=== PATIENT | female | born 1950 | race Caucasian/White ===

== ENCOUNTER 2020-03-27 14:12 | Outpatient (REF) | payer MEDICARE, SELFPAY ==
--- NOTE | 2020-03-27 14:17 | MM_ITS ---
EXAMINATION: MM SCREENING DIGITAL MAMMOGRAPHY, BILATERAL CLINICAL INFORMATION: Screening. Asymptomatic. The lifetime risk of breast cancer based on the Tyrer-Cuzick Model is 6%. COMPARISON: Mammography: 11/14/2018, 11/10/2017, 11/08/2016, 10/06/2015 TECHNIQUE: Digital mammography is performed in craniocaudal and mediolateral oblique views along with computer-aided detection (CAD). FINDINGS: There are scattered areas of fibroglandular density (ACR BI-RADS breast composition Category b). There is again a circumscribed small stable nodule anterior left breast and small circumscribed nodule anterior right breast. There is a new circumscribed nodule right breast under 5 mm central 3:30 o'clock position mid depth, possibly a cyst. Patient will be recalled for additional imaging. The remainder of the breasts show no significant mass or architectural abnormality or abnormal calcifications. The axilla and skin contours are unremarkable. IMPRESSION: 1. Right: New small circumscribed nodule mid central 2:30 o'clock position, possibly a cyst. 2. Left: There are no significant changes from prior study. ASSESSMENT: BI-RADS 0: Incomplete - Need Additional Imaging Evaluation RECOMMENDATION: 1. Targeted ultrasound right breast. 2. Radiology department staff will contact the patient for additional imaging. This patient's information was entered into a reminder system with a target due date for their next mammogram.
== END 2020-03-27 14:13 | disposition home or self-care (01) ==
LOC: HO.MAMMO 14:12
PROVIDERS: Visit Provider Internal Medicine
DX: Z12.31 Encounter for screening mammogram for malignant neoplasm of breast (principal)
CPT/HCPCS: 77067

== ENCOUNTER 2020-04-02 12:02 | Outpatient (REF) | payer MEDICARE, SELFPAY ==
--- NOTE | 2020-04-02 | US_ITS ---
EXAMINATION: US DIAGNOSTIC ULTRASOUND BREAST, RIGHT CLINICAL INFORMATION: Recall from screening for new small circumscribed nodule mid central 12:30 o'clock right breast. COMPARISON: Mammography 03/27/2020, 11/14/2018. TECHNIQUE: Ultrasound right breast is targeted to the upper inner quadrant. Grayscale imaging and color Doppler are performed without and with harmonics. FINDINGS: There is a tiny circumscribed anechoic nodule just under 3 mm view from the 3:00 position 4 cm from nipple likely corresponding to finding on mammography. There is no increased or decreased through transmission of sound likely related to the small size. No associated color flow. There is no suspicious solid mass or architectural abnormality. Results are discussed with the patient at time of visit. Management plan is for follow-up right mammography in 6 months. Follow-up ultrasound may be considered if warranted. IMPRESSION: Probable small cyst just under 3 mm likely corresponding to finding on recent mammography. ASSESSMENT: BI-RADS 3: Probably Benign RECOMMENDATION: Diagnostic right mammography in 6 months. This patient's information was entered into a reminder system with a target due date for their next mammogram.
== END 2020-04-02 12:03 | disposition home or self-care (01) ==
LOC: HO.MAMMO 12:02
PROVIDERS: Visit Provider Internal Medicine
DX: N63.12 Unspecified lump in the right breast, upper inner quadrant (principal)
CPT/HCPCS: 76642

== ENCOUNTER 2020-05-07 06:13 | Outpatient (REF) | payer MEDICARE, SELFPAY | END 2020-05-07 06:14 | disposition home or self-care (01) | LOC: HO.LAB 06:13 | PROVIDERS: PCP Internal Medicine; Visit Provider Internal Medicine | DX: Z20.828 Contact with and (suspected) exposure to other viral communicable diseases (principal) | CPT/HCPCS: C9803; U0003 ==

== ENCOUNTER 2020-06-30 08:24 | Day surgery (SDC) | payer MEDICARE, SELFPAY ==
[2020-06-24 15:43] VITALS: BMI 25.4
--- NOTE | 2020-06-26 15:36 | HO.ANESPROP2 ---
Documented by User: Jojo Gunderson 06/26/20 15:37 HPI - Anesthesia Eval Consult details Narrative: 70yo F for Colonoscopy PMFSH Past Medical History Medical History Bilateral sciatica Elevated cholesterol Hx of heartburn Surgical History Surgical History History of bladder suspension procedure Hx of colonoscopy Hx of hysterectomy Social History Social History Alcohol intake: never Smoking Status: Former smoker Smoking Quit Date: 2013 Use of substances other than those prescribed or required for medical reasons: No Advance Directives: No Advance Directives Information Provided: No Advance Directives on File: No Meds Allergies Allergy/AdvReac Type Severity Reaction Status Date / Time codeine Allergy Severe Hives Verified 06/24/20 15:13 Penicillins Allergy Severe Anaphylaxis Verified 06/24/20 15:11 Home Medications Medication Instructions Recorded Confirmed Type biotin 1,000 mcg PO DAILY 06/24/20 06/24/20 History cholecalciferol (vitamin D3) 25 mcg PO DAILY 06/24/20 06/24/20 History [Vitamin D3] multivitamin 1 tab PO DAILY 06/24/20 06/24/20 History Exam Exam Date and Time: June 26, 2020 1536 Height,Weight and Vital Signs: Height 5 ft 1 in Weight 61.235 kg Assessment and Plan Assessment Anesthesia Assessment: Chart Reviewed Documented by User: Caterina Tejada 06/30/20 09:55 PMFSH Past Medical History Medical History Bilateral sciatica Elevated cholesterol Hx of heartburn Surgical History Surgical History History of bladder suspension procedure Hx of colonoscopy Hx of hysterectomy Social History Social History Alcohol intake: never Smoking Status: Former smoker Smoking Quit Date: 2013 Use of substances other than those prescribed or required for medical reasons: No Advance Directives: No Advance Directives Information Provided: No Advance Directives on File: No Meds Allergies Allergy/AdvReac Type Severity Reaction Status Date / Time codeine Allergy Severe Hives Verified 06/24/20 15:13 Penicillins Allergy Severe Anaphylaxis Verified 06/24/20 15:11 Home Medications Medication Instructions Recorded Confirmed Type biotin 1,000 mcg PO DAILY 06/24/20 06/24/20 History cholecalciferol (vitamin D3) 25 mcg PO DAILY 06/24/20 06/24/20 History [Vitamin D3] multivitamin 1 tab PO DAILY 06/24/20 06/24/20 History Exam Airway Mallampati Class: II (4 caps top) TM Dist: >3cm Neck ROM: Full Heart: RrR Lungs: CTA BL Assessment and Plan Assessment Anesthesia Assessment: Anesthesia Plan Discussed and Chart Reviewed Final Anesthetic Review NPO: Yes ASA Class: II Final Preanesthetic Review: Meds/Allgs Chart Reviewed and Consent Obtained/Reviewed Patient Risk: Intermediate Procedure Risk: Intermediate Anesthetic Plan Anesthetic Plan: MAC: Disposition: Standard PACU
[2020-06-30 09:19] VITALS: BP 142/92; PULSE 86; RESP 18; TEMP 36.9; O2SAT 97; BMI 25.2
[2020-06-30] MEDS: Lactated Ringers 1,000 ML 100 ML IVCONT (09:24)
[2020-06-30 10:56] VITALS: BP 129/82; PULSE 69; RESP 16; TEMP 36.2; O2SAT 97
--- NOTE | 2020-06-30 11:00 | PM.OP ---
Brief Operative Note Date of Service: 06/30/20 Pre-op diagnosis: Screening Post-op diagnosis: other (Diverticulosis, [place] hemorrhoids) Procedure: Colonoscopy to the cecum Surgeon: Ole Peres Anesthesia: MAC Estimated blood loss (mL): 0 Pathology: none sent Condition: stable Disposition: PACU
[2020-06-30 11:11] VITALS: BP 138/81; PULSE 71; RESP 18; TEMP 36.2; O2SAT 96
--- NOTE | 2020-06-30 11:30 | OP_ITS ---
SURGEON: Ole Peres MD INDICATIONS: The patient presents for followup of personal history of tubular adenoma of the colon and colorectal cancer screening. Full consent has been obtained from her for this, including risks of bleeding and perforation. PREOPERATIVE DIAGNOSIS: POSTOPERATIVE DIAGNOSIS: PROCEDURE PERFORMED: Colonoscopy to the cecum. ESTIMATED BLOOD LOSS: COMPLICATIONS: ANESTHESIA: Monitored anesthesia care. ASSISTANTS: SPECIMENS: PREOPERATIVE DIAGNOSES: Colorectal cancer screening and personal history of tubular adenoma of the colon. POSTOPERATIVE DIAGNOSES: Colorectal cancer screening and personal history of tubular adenoma of the colon, diverticulosis, and internal hemorrhoids. DESCRIPTION OF PROCEDURE: The patient was placed in the left lateral decubitus position. The digital rectal exam revealed no abnormalities. The Olympus video pediatric colonoscope was entered into the rectum and advanced to the cecum with the assistance of abdominal wall pressure. Once in the cecum, I did identify normal-appearing cecal pouch with appendiceal orifice and a normal-appearing ileocecal valve. There was transillumination of light deep in the right lower quadrant. The entire cecum was well visualized and appeared normal. The scope was slowly withdrawn assessing all mucosal surfaces carefully. Preparation was excellent. I did not visualize any sign of polyps, colitis, nor angiodysplasia. There was a moderate amount of sigmoid diverticulosis. In the rectum, scope was retroflexed visualizing internal hemorrhoids, but no other pathology. The rectal mucosa appeared normal. The scope was straightened and withdrawn from the patient. She tolerated the procedure well and was returned to recovery area in stable condition. IMPRESSION: 1. Diverticulosis. 2. Internal hemorrhoids. PLAN: Given her previous history, I would recommend a followup colonoscopy in 5 years for further screening. She will otherwise see me on a p.r.n. basis. MD KIRSTEN Lynn/JAIME / [phone]
--- NOTE | 2020-06-30 11:47 | HO.POSTANES ---
Post Anesthesia Evaluation Post Anesthesia Evaluation Vital Signs: Vital Signs Temp Pulse Resp BP Pulse Ox 06/30/20 11:11 97.1 F 71 18 138/81 96 06/30/20 10:56 97.1 F 69 16 129/82 97 06/30/20 09:19 98.5 F 86 18 142/92 H 97 Anesthesia: Monitored Mental Status: Awake Pain Control: Satisfactory Nausea/Vomiting: None Hydration: Adequate Anesthesia-Related Issues: No Anes. Related Issues
== END 2020-06-30 11:56 | disposition home or self-care (01) ==
PROVIDERS: PCP Internal Medicine; Visit Provider Internal Medicine
PROC: 0DJD8ZZ Inspection of Lower Intestinal Tract, Via Natural or Artificial Opening Endoscopic (ICD-10-PCS; CPT 45378; principal; 2020-06-30 09:40)
DX: Z12.11 Encounter for screening for malignant neoplasm of colon (principal); K57.30 Diverticulosis of large intestine without perforation or abscess without bleeding; K64.8 Other hemorrhoids; E78.00 Pure hypercholesterolemia, unspecified; Z79.899 Other long term (current) drug therapy; Z87.891 Personal history of nicotine dependence; Z88.0 Allergy status to penicillin; Z88.8 Allergy status to other drugs, medicaments and biological substances
CPT/HCPCS: G0105

== ENCOUNTER 2020-08-14 06:02 | Outpatient (REF) | payer MEDICARE, SELFPAY ==
[2020-08-14 11:12] LABS: MANUAL DIFF FLAG NO
[2020-08-14 11:25] LABS: Basophils Percent Auto 0.4 % (0-2); Eosinophils Absolute Auto 0.2 X10*3/uL (0.0-0.4); Eosinophils Percent Auto 2.5 % (0-4); Hematocrit 38.9 % (37-47); Hemoglobin 12.8 g/dl (12.0-16.0); Imm Gran Abs Auto 0.02 X10*3/uL (0.00-0.03); Imm Gran Pct Auto 0.2 % (0.0-0.4); Lymphocytes Absolute Auto 3.9 X10*3/uL (1.2-4.9); Lymphocytes Percent Auto 47.9 % (20-40); Mean Corpuscular HGB Conc 32.9 g/dl (31.0-35.0); Mean Corpuscular Hemoglobin 30.7 pg (27.0-33.0); Mean Corpuscular Volume 93.3 fL (80-98); Mean Platelet Volume 10.8 fL (9.4-12.3); Monocytes Absolute Auto 0.5 X10*3/uL (0.1-1.2); Monocytes Percent Auto 5.5 % (2-11); Neutrophils Absolute Auto 3.5 X10*3/uL (2.0-8.3); Neutrophils Percent Auto 43.5 % (45-73); Platelet Count 276 X10*3/uL (160-400); Red Blood Count 4.17 X10*6/uL (4.20-5.50); Red Cell Distribution Width 12.6 % (11.0-16.0); White Blood Count 8.1 X10*3/uL (4.8-10.8)
[2020-08-14 12:01] LABS: Anion Gap 13 (12-20); Blood Urea Nitrogen 15 mg/dL (9-16); Calcium 9.1 mg/dL (8.4-10.2); Carbon Dioxide 30 mmol/L (22-29); Chloride 104 mmol/L (96-108); Cholesterol 226 mg/dL; Estimated Glomerular Filt Rate > 60; Glucose Fasting 116 mg/dL (60-99); HDL Cholesterol 49 mg/dL; LDL Cholesterol Calculated 132 mg/dl; Potassium 4.2 mmol/L (3.3-5.1); Sodium 143 mmol/L (135-145); Triglycerides 229 mg/dL
[2020-08-14 12:04] LABS: Vitamin D 25-OH Total 41.4 ng/mL (>30)
== END 2020-08-14 06:03 | disposition home or self-care (01) ==
LOC: HO.HMGCLDS 06:02
PROVIDERS: PCP Internal Medicine; Visit Provider Internal Medicine
DX: D72.829 Elevated white blood cell count, unspecified (principal); E78.1 Pure hyperglyceridemia; M85.89 Other specified disorders of bone density and structure, multiple sites; R73.01 Impaired fasting glucose; Z78.0 Asymptomatic menopausal state; I10 Essential (primary) hypertension
CPT/HCPCS: 36415; 80048; 80061; 82306; 85025

== ENCOUNTER 2020-09-01 08:39 | Outpatient (REF) | payer MEDICARE, SELFPAY ==
--- NOTE | ~2020-09-01 | MM_ITS ---
EXAMINATION: MM DIAGNOSTIC DIGITAL BREAST TOMOSYNTHESIS, RIGHT CLINICAL INFORMATION: Short interval six-month follow-up probable benign circumscribed nodule central right breast. The lifetime risk of breast cancer based on the Tyrer-Cuzick Model is 6%. COMPARISON: Mammography: 03/27/2020, 11/14/2018, 11/10/2017; targeted right breast ultrasound 04/02/2020 TECHNIQUE: Digital breast tomosynthesis is performed in both the craniocaudal and mediolateral oblique views along with computer-aided detection (CAD). Synthesized 2D images are generated from the tomosynthesis. FINDINGS: There are scattered areas of fibroglandular density (ACR BI-RADS breast composition Category b). The small circumscribed nodule central right breast is without significant change. It will be reassessed again at time of annual bilateral mammography, due in 6 months. Remainder of the right breast is unremarkable. No abnormal calcifications. The skin contours are smooth. Results are provided to the patient at time of visit by the technologist. MM/MM tomosynthesis diagnostic RT IMPRESSION: Small circumscribed nodule central right breast under 5 mm without significant change. ASSESSMENT: BI-RADS 3: Probably Benign RECOMMENDATION: Diagnostic mammography at time of annual bilateral exam, due in 6 months. This patient's information was entered into a reminder system with a target due date for their next mammogram.
== END 2020-09-01 08:40 | disposition home or self-care (01) ==
LOC: HO.MAMMO 08:39
PROVIDERS: Visit Provider Internal Medicine
DX: R92.2 Inconclusive mammogram (principal)
CPT/HCPCS: 77061; 77065

== ENCOUNTER 2021-03-11 14:43 | Outpatient (REF) | payer MEDICARE, SELFPAY ==
--- NOTE | ~2021-03-11 | MM_ITS ---
EXAMINATION: MM DIAGNOSTIC DIGITAL BREAST TOMOSYNTHESIS, BILATERAL CLINICAL INFORMATION: Six-month follow-up right breast nodule. COMPARISON: Mammography: Mammography of 09/01/2020 and studies dating back to 04/17/2010. Ultrasound studies of 04/02/2020 and 10/14/2015. TECHNIQUE: Digital breast tomosynthesis is performed in both the craniocaudal and mediolateral oblique views along with computer-aided detection (CAD). Synthesized 2D images are generated from the tomosynthesis. FINDINGS: There are scattered areas of fibroglandular density (ACR BI-RADS breast composition Category b). There is stable parenchymal pattern bilaterally with a few well-circumscribed densities likely representing cysts with stability of the 3 mm density about the central superior medial right breast. The left retroareolar density is stable compared to recent studies and smaller than on older studies including 04/17/2010 and 03/20/2009. No new abnormal dominant mass or suspicious grouping of microcalcification is identified. Results are discussed with the patient at time of visit. MM/MM tomosynthesis diagnostic BI IMPRESSION: There are no significant changes from prior study. ASSESSMENT: BI-RADS 3: Probably Benign. RECOMMENDATION: Diagnostic mammography at time of next annual exam, due in 12 months. This patient's information was entered into a reminder system with a target due date for their next mammogram.
== END 2021-03-11 14:44 | disposition home or self-care (01) ==
LOC: HO.MAMMO 14:43
PROVIDERS: PCP Internal Medicine; Visit Provider Internal Medicine
DX: N63.15 Unspecified lump in the right breast, overlapping quadrants (principal)
CPT/HCPCS: 77062; 77066

== ENCOUNTER 2021-03-26 13:22 | Outpatient (REF) | payer MEDICARE, SELFPAY ==
--- NOTE | ~2021-03-26 | MM_ITS ---
EXAMINATION: BONE DENSITOMETRY CLINICAL INDICATION: Other specified disorders of bone density and structure. COMPARISON: Previous BD dated 11/10/2017 and baseline BD dated 03/20/2009, left hip; 06/26/2004, spine. TECHNIQUE: Using a [employer] DXA System (software version: 13.1) manufactured by [employer], dual-energy x-ray absorptiometry was performed of the lumbar spine and left hip. The images are of good technical quality. Summary results are attached. FINDINGS: AP SPINE L1-L4: Current: BMD 1.060 g/cm2, Z-score 0.7, T-score -1.0, normal, 2.0% decrease from previous, 3.4% decrease from baseline (<5% change is not significant). Prior: BMD 1.082 g/cm2. Baseline: BMD 1.097 g/cm2. LEFT FEMUR, NECK: Current: BMD 0.833 g/cm2, Z-score 0.2, T-score -1.5, osteopenia. Prior: BMD 0.793 g/cm2. Baseline: BMD 0.847 g/cm2. LEFT FEMUR, TOTAL: Current: BMD 0.895 g/cm2, Z-score 0.6, T-score -0.9, normal, 10.1% increase from previous, 3.7% decrease from baseline (<5% change is not significant). Prior: BMD 0.813 g/cm2. Baseline: BMD 0.929 g/cm2. IDENTIFIED RISK FACTORS: Early menopause, secondary osteoporosis, hysterectomy. HISTORY OF FRACTURE: None listed. MEDICATIONS: Calcium supplements or multivitamin, vitamin D. MM/XR DEXA axial skeleton IMPRESSION: 1. DIAGNOSIS: Osteopenia based on the lowest T-score value of -1.5 in the femoral neck applying World Health Organization criteria. 2. 10-YEAR FRACTURE RISK PREDICTION, FRAX: Major osteoporotic fracture (clinical spine, forearm, hip or shoulder) 9.9%. Hip fracture 1.4%. 3. Treatment Recommendations: NOF guidelines recommend consideration for treatment in postmenopausal women and men age 50 and older presenting with the following: -A hip or vertebral (clinical or morphometric) fracture. -T-score less than or equal to -2.5 at the femoral neck or spine after appropriate evaluation to exclude secondary causes. -Low bone mass at the hip or spine and a 10-year fracture probability by FRAX of greater than or equal to 3% for hip fracture or greater than or equal to 20% for major osteoporotic fracture based on the [place] adapted WHO algorithm. 4. Other Recommendations: All treatment decisions require clinical judgment and consideration of individual patient factors, including patient preferences, comorbidities, previous drug use, risk factors not captured in the FRAX model (e.g. frailty, falls, vitamin D deficiency, increased bone turnover, interval significant decline in bone density) and possible under or overestimation of fracture risk by FRAX. Additional medical evaluation for secondary cause of low bone mineral density may be appropriate. FUTURE SCAN RECOMMENDATION: People with diagnosed cases of osteoporosis or at high risk for fracture should have regular bone mineral density tests. For patients eligible for Medicare, routine testing is allowed once every 2 years. The testing frequency can be increased to one year for patients who have rapidly progressing disease, those who are receiving or discontinuing medical therapy to restore bone mass, or have additional risk factors.
== END 2021-03-26 13:23 | disposition home or self-care (01) ==
LOC: HO.MAMMO 13:22
PROVIDERS: Visit Provider Internal Medicine
DX: Z13.820 Encounter for screening for osteoporosis (principal); M85.89 Other specified disorders of bone density and structure, multiple sites; Z78.0 Asymptomatic menopausal state; Z79.899 Other long term (current) drug therapy; Z98.890 Other specified postprocedural states
CPT/HCPCS: 77080

== ENCOUNTER 2021-08-19 06:06 | Outpatient (REF) | payer MEDICARE, SELFPAY ==
[2021-08-19 11:30] LABS: Alanine Aminotransferase 26 U/L (0-31); Anion Gap 9 (12-20); Aspartate Amino Transferase 23 U/L (5-31); Blood Urea Nitrogen 17 mg/dL (9-16); Calcium 9.1 mg/dL (8.4-10.2); Carbon Dioxide 30 mmol/L (22-29); Chloride 106 mmol/L (96-108); Cholesterol 210 mg/dL; Estimated Glomerular Filt Rate > 60; Glucose Fasting 120 mg/dL (60-99); HDL Cholesterol 41 mg/dL; LDL Cholesterol Calculated 125 mg/dl; Potassium 4.1 mmol/L (3.3-5.1); Sodium 141 mmol/L (135-145); Triglycerides 220 mg/dL
[2021-08-19 11:52] LABS: Vitamin D 25-OH Total 51.1 ng/mL (>30)
== END 2021-08-19 06:07 | disposition home or self-care (01) ==
LOC: HO.HMGCLDS 06:06
PROVIDERS: Visit Provider Internal Medicine
DX: E78.2 Mixed hyperlipidemia (principal); M85.89 Other specified disorders of bone density and structure, multiple sites; E78.1 Pure hyperglyceridemia; I10 Essential (primary) hypertension; R73.01 Impaired fasting glucose; Z78.0 Asymptomatic menopausal state
CPT/HCPCS: 36415; 80048; 80061; 82306; 84450; 84460

== ENCOUNTER 2022-02-23 16:24 | Outpatient (REF) | payer OTHER, SELFPAY ==
[2022-02-23 16:28] LABS: Urine Cytology See Pathology rpt
[2022-02-23 16:35] LABS: Appearance Urine Clear; Color Urine Yellow; Glucose Urine UA Negative (Negative); Leukocyte Esterase Urine Large (3+) (Negative); Nitrite Urine Negative (Negative); Urine Blood Large (3+) (Negative); Urine Ketones Negative (Negative); Urine Protein Trace mg/dL (Neg-Trace)
[2022-02-23 16:49] LABS: Bacteria Urine None Seen (None Seen); Hyaline Casts Urine 0-2 /LPF (0-2); Squamous Epithelial Cell Urine 0-2 /HPF (0-2); UACC Culture Trigger YES; WBC Urine >50 /HPF (0-5)
== END 2022-02-23 16:25 | disposition home or self-care (01) ==
LOC: HO.LNP 16:24
PROVIDERS: Visit Provider Internal Medicine
DX: R31.9 Hematuria, unspecified (principal); R10.9 Unspecified abdominal pain; Z87.442 Personal history of urinary calculi
CPT/HCPCS: 81001; 87086; 88112

== ENCOUNTER 2022-02-25 06:06 | Outpatient (REF) | payer OTHER, SELFPAY ==
[2022-02-25 11:24] LABS: MANUAL DIFF FLAG NO
[2022-02-25 11:33] LABS: Basophils Percent Auto 0.5 % (0-2); Eosinophils Absolute Auto 0.2 X10*3/uL (0.0-0.4); Hematocrit 40.2 % (37.0-47.0); Hemoglobin 12.9 g/dl (12.0-16.0); Imm Gran Abs Auto 0.02 X10*3/uL (0.00-0.03); Imm Gran Pct Auto 0.3 % (0.0-0.4); Lymphocytes Absolute Auto 3.2 X10*3/uL (1.2-4.9); Lymphocytes Percent Auto 41.4 % (20-40); Mean Corpuscular HGB Conc 32.1 g/dl (31.0-35.0); Mean Corpuscular Hemoglobin 29.9 pg (27.0-33.0); Mean Corpuscular Volume 93.3 fL (80.0-98.0); Mean Platelet Volume 10.5 fL (9.4-12.3); Monocytes Absolute Auto 0.4 X10*3/uL (0.1-1.2); Monocytes Percent Auto 5.2 % (2-11); Neutrophils Absolute Auto 3.9 x10*3/uL (2.0-8.3); Neutrophils Percent Auto 50.6 % (45-73); Platelet Count 259 X10*3/uL (160-400); Red Blood Count 4.31 X10*6/uL (4.20-5.50); Red Cell Distribution Width 12.1 % (11.0-16.0); White Blood Count 7.7 X10*3/uL (4.8-10.8)
[2022-02-25 12:20] LABS: Estimated Average Glucose 128 mg/dL; Hemoglobin A1c % 6.1 %
[2022-02-25 12:28] LABS: Alanine Aminotransferase 20 U/L (0-31); Aspartate Amino Transferase 21 U/L (5-31); Cholesterol 207 mg/dL; Glucose Fasting 125 mg/dL (60-99); HDL Cholesterol 39 mg/dL; LDL Cholesterol Calculated 94 mg/dl; Triglycerides 370 mg/dL
[2022-02-25 12:52] LABS: Vitamin D 25-OH Total 46.4 ng/mL (>30)
== END 2022-02-25 06:07 | disposition home or self-care (01) ==
LOC: HO.HMGCLDS 06:06
PROVIDERS: PCP Internal Medicine; Visit Provider Internal Medicine
DX: R73.01 Impaired fasting glucose (principal); E78.2 Mixed hyperlipidemia; M85.89 Other specified disorders of bone density and structure, multiple sites; Z78.0 Asymptomatic menopausal state
CPT/HCPCS: 36415; 80061; 82306; 82947; 83036; 84450; 84460; 85025

== ENCOUNTER 2022-02-26 06:35 | Outpatient (REF) | payer OTHER, SELFPAY ==
[2022-02-26 11:56] LABS: Appearance Urine Clear; Color Urine Yellow; Glucose Urine UA Negative (Negative); Leukocyte Esterase Urine Moderate (2+) (Negative); Nitrite Urine Negative (Negative); PH 5.5 (5.0-9.0); Urine Blood Trace (Negative); Urine Ketones Negative (Negative); Urine Protein Trace mg/dL (Neg-Trace)
[2022-02-26 11:59] LABS: Bacteria Urine 3+ (None Seen); Hyaline Casts Urine 0-2 /LPF (0-2); WBC Urine 21-50 /HPF (0-5)
[2022-02-26 12:05] LABS: UACC Culture Trigger YES
== END 2022-02-26 06:36 | disposition home or self-care (01) ==
LOC: HO.HMGCLDS 06:35
PROVIDERS: PCP Internal Medicine; Visit Provider Internal Medicine
DX: Z13.89 Encounter for screening for other disorder (principal)
CPT/HCPCS: 81001; 87086; 87088; 87186

== ENCOUNTER 2022-02-27 11:20 | Outpatient (REF) | payer OTHER, SELFPAY ==
[2022-02-27 13:28] LABS: Urine Cytology See Pathology rpt
== END 2022-02-27 11:21 | disposition home or self-care (01) ==
LOC: HO.HMGCLNP 11:20
PROVIDERS: PCP Internal Medicine; Visit Provider Internal Medicine
DX: R31.9 Hematuria, unspecified (principal)
CPT/HCPCS: 88112

== ENCOUNTER 2022-03-16 07:18 | Outpatient (REF) | payer OTHER, SELFPAY ==
[2022-03-16 12:38] LABS: Appearance Urine Clear; Color Urine Yellow; Glucose Urine UA Negative (Negative); Leukocyte Esterase Urine Negative (Negative); Nitrite Urine Negative (Negative); PH 5.5 (5.0-9.0); Specific Gravity - Urine 1.025 (1.005-1.025); Urine Blood Negative (Negative); Urine Ketones Negative (Negative); Urine Protein Negative (Neg-Trace)
== END 2022-03-16 07:19 | disposition home or self-care (01) ==
LOC: HO.HMGCLDS 07:18
PROVIDERS: PCP Internal Medicine; Visit Provider Internal Medicine
DX: N39.0 Urinary tract infection, site not specified (principal)
CPT/HCPCS: 81003

== ENCOUNTER 2022-03-30 15:05 | Outpatient (REF) | payer OTHER, SELFPAY ==
--- NOTE | ~2022-03-30 | MM_ITS ---
EXAMINATION: MM DIAGNOSTIC DIGITAL BREAST TOMOSYNTHESIS, BILATERAL CLINICAL INFORMATION: Due for yearly. Follow-up probable benign small circumscribed nodule central inner right breast. Family history breast cancer, sister. TC score 4%. COMPARISON: Mammography: 03/11/2021, 09/01/2020, 03/27/2020 (BI-RADS 0). Diagnostic right breast ultrasound 04/02/2020. TECHNIQUE: Digital breast tomosynthesis is performed in both the craniocaudal and mediolateral oblique views along with computer-aided detection (CAD). Synthesized 2D images are generated from the tomosynthesis. FINDINGS: There are scattered areas of fibroglandular density (ACR BI-RADS breast composition Category b). Parenchymal pattern is similar to prior studies and there is no interval mass or architectural abnormality or abnormal calcifications. There is a chronic smooth nodule just under 5 mm anterior left breast. The smaller nodule for follow-up central inner right breast is no longer clearly demonstrated consistent with resolving cyst. The axilla and skin contours are unremarkable. Results are provided to the patient at time of visit by the technologist. MM/MM tomosynthesis diagnostic BI IMPRESSION: -No mammographic evidence of malignancy. -Small circumscribed nodule for follow-up central inner right breast is no longer clearly demonstrated suggesting resolving cyst. ASSESSMENT: BI-RADS 2: Benign RECOMMENDATION: Routine annual mammography screening. This patient's information was entered into a reminder system with a target due date for their next mammogram.
== END 2022-03-30 15:06 | disposition home or self-care (01) ==
LOC: HO.MAMMO 15:05
PROVIDERS: Visit Provider Internal Medicine
DX: N63.15 Unspecified lump in the right breast, overlapping quadrants (principal)
CPT/HCPCS: 77062; 77066

== ENCOUNTER 2022-04-08 13:39 | Outpatient (REF) | payer OTHER, SELFPAY ==
--- NOTE | ~2022-04-08 | US_ITS ---
EXAMINATION: US RETROPERITONEAL LIMITED (RENAL ONLY) CLINICAL INFORMATION: Hematuria, unspecified. COMPARISON: None TECHNIQUE: Real-time imaging of the kidneys. FINDINGS: RIGHT KIDNEY: 9.70 x 4.05 x 5.21 cm (SAG x AP x TRV). The kidney is normal in size, contour, and echogenicity. Renal cortical thickness is normal. Multiple echogenic but nonshadowing foci are seen in the right kidney which could reflect vascular calcifications or nonshadowing calculi. No focal parenchymal lesions. No hydronephrosis. LEFT KIDNEY: 10.4 x 4.46 x 4.69 cm (SAG x AP x TRV). The kidney is normal in size, contour, and echogenicity. Renal cortical thickness is normal. No renal calculi or hydronephrosis. 9 mm left upper pole simple cyst. US/US renal BI IMPRESSION: Multiple small (2 to 3 mm) nonspecific echogenic foci are seen in the right kidney, without shadowing. These could represent vascular calcifications or nonshadowing calculi.
== END 2022-04-08 13:40 | disposition home or self-care (01) ==
LOC: HO.HMGCX 13:39
PROVIDERS: PCP Internal Medicine; Visit Provider Internal Medicine
DX: R31.9 Hematuria, unspecified (principal); Z87.442 Personal history of urinary calculi
CPT/HCPCS: 76775

== ENCOUNTER 2022-08-03 13:37 | Outpatient (REF) | payer OTHER, SELFPAY ==
[2022-08-03 16:14] LABS: Urine Cytology See Pathology rpt
== END 2022-08-03 13:38 | disposition home or self-care (01) ==
LOC: HO.LAB 13:37
PROVIDERS: PCP Internal Medicine; Visit Provider Nurse Practitioner Family
DX: R31.9 Hematuria, unspecified (principal)
CPT/HCPCS: 88112; 99202

== ENCOUNTER 2022-08-10 09:24 | Outpatient (REF) | payer OTHER, SELFPAY ==
[2022-08-10 11:48] LABS: Blood Urea Nitrogen 12 mg/dL (9-16); Estimated Glomerular Filt Rate > 60
== END 2022-08-10 09:25 | disposition home or self-care (01) ==
LOC: HO.HMGCLDS 09:24
PROVIDERS: PCP Internal Medicine; Visit Provider Nurse Practitioner Family
DX: R31.9 Hematuria, unspecified (principal)
CPT/HCPCS: 36415; 82565; 84520

== ENCOUNTER 2022-08-30 08:01 | Outpatient (REF) | payer OTHER, SELFPAY ==
--- NOTE | ~2022-08-30 | CT_ITS ---
EXAMINATION: CT ABDOMEN AND PELVIS WITHOUT AND WITH CONTRAST CLINICAL INFORMATION: Gross hematuria. COMPARISON: None available. TECHNIQUE: Noncontrast CT of the abdomen and pelvis is performed followed by split bolus contrast-enhanced images using 85 mL Omnipaque 350 contrast.? Postcontrast imaging is performed during the combined nephrogram and excretion phase. Sagittal and coronal reformatted images were obtained on the technologist's workstation for both the precontrast and postcontrast phases. This CT examination was performed using dose optimization techniques as appropriate, variously including the following: *Automated exposure control *Adjustment of mA and/or kV according to patient size (this includes techniques or standardized protocols for targeted exams where dose is matched to indication/reason for exam; i.e. extremities or head) *Use of iterative reconstruction technique DLP: 661 mGy-cm FINDINGS: LUNG BASES: The visualized lung bases are unremarkable. LIVER, GALLBLADDER, AND BILIARY TREE: The liver is normal in size, shape, and attenuation. There are at least 3 hypodense lesions, 6 mm segment 2a, 6 mm segment 8 and the largest 1.5 cm segment 6. The gallbladder is unremarkable with no evidence of radiopaque gallstones, gallbladder wall thickening, or obvious pericholecystic inflammatory changes. PANCREAS: Unremarkable. SPLEEN: Unremarkable. ADRENAL GLANDS: Unremarkable. KIDNEYS AND URETERS: There are no radiopaque renal or ureteral calculi seen in the precontrast exam. No hydronephrosis. Postcontrast, there are normal renal nephrograms with left kidney measuring 10 cm in length and right kidney measuring 9.8 cm in length. No enhancing renal mass or mass effect seen. There is an 8 mm nonenhancing cyst in both upper poles. There is good excretion of contrast and opacification of bilateral calyces and extrarenal kidney pelvises. The ureters are opacified with contrast without any intraluminal filling defect or narrowing. There is mild tortuosity of right proximal ureter. BLADDER: Unremarkable. GASTROINTESTINAL TRACT: There is scattered colonic diverticulosis without diverticulitis. Minimal stool and gas is seen throughout the colon without distention. The small bowel loops are normal caliber. Appendix is normal caliber. No free air or free fluid is seen. ABDOMINAL WALL: There is a small umbilical hernia containing fat. LYMPH NODES: Normal. VASCULAR: There is atherosclerotic calcification of abdominal aorta and external iliac arteries. PELVIC VISCERA: The uterus is not visualized likely surgically absent. No mass or abnormal lymphadenopathy seen. There is no free fluid. OSSEUS STRUCTURES: No aggressive lytic or sclerotic process seen. There is mild degenerative disc changes L3-L4 and L4-L5 disc levels with ventral spondylosis. CT/CT urogram IMPRESSION: No radiopaque urolith, hydroureteronephrosis or enhancing renal mass. There are bilateral upper pole renal cysts. There are hypodense nonenhancing small liver lesions likely cysts as well.
[2022-08-30] MEDS: iohexoL 350 MG/ML 100 ML INFUS..BTL 85 ML IV (09:37)
== END 2022-08-30 08:02 | disposition home or self-care (01) ==
LOC: HO.CT 08:01
PROVIDERS: PCP Internal Medicine; Visit Provider Nurse Practitioner Family
DX: R31.0 Gross hematuria (principal)
CPT/HCPCS: 74178; Q9967

== ENCOUNTER → 2022-09-03 14:19 | Outpatient (BNVA) | payer OTHER, SELFPAY | PROVIDERS: PCP Internal Medicine; Visit Provider Urology | DX: R31.0 Gross hematuria (principal); N39.0 Urinary tract infection, site not specified; M54.9 Dorsalgia, unspecified | CPT/HCPCS: 99212 ==

== ENCOUNTER 2022-09-13 06:56 | Outpatient (REF) | payer OTHER, SELFPAY ==
[2022-09-13 12:05] LABS: Alanine Aminotransferase 28 U/L (0-31); Aspartate Amino Transferase 25 U/L (5-31); Cholesterol 214 mg/dL; HDL Cholesterol 45 mg/dL; LDL Cholesterol Calculated 124 mg/dl; Triglycerides 226 mg/dL
[2022-09-13 12:31] LABS: Estimated Average Glucose 146 mg/dL; Hemoglobin A1c % 6.7 %
== END 2022-09-13 06:57 | disposition home or self-care (01) ==
LOC: HO.HMGCLDS 06:56
PROVIDERS: PCP Internal Medicine; Visit Provider Internal Medicine
DX: E78.2 Mixed hyperlipidemia (principal); R73.01 Impaired fasting glucose
CPT/HCPCS: 36415; 80061; 83036; 84450; 84460

== ENCOUNTER 2022-09-23 14:47 | Outpatient (AMB) | payer OTHER, SELFPAY ==
[2022-09-23 15:08] VITALS: BP 144/84; PULSE 73; O2SAT 96; BMI 29.3
--- NOTE | 2022-09-23 15:08 | A.OFFPC_ITS ---
Vital Signs 09/23/22 15:08 Height 5 ft Weight 150 lb 2 oz BMI 29.3 BP 144/84 H Blood Pressure Location Rt brachial Position Sitting Pulse 73 Pulse Source Pulse Oximeter Pulse Oximetry (%) 96 Oxygen Delivery Method Room Air Intake Visit Reasons: 6 Mo follow up / Labs Intake Note: Pt is here todayfor 6 month f/u and labs Allergies codeine Allergy (Severe, Verified 04/18/23 02:21) Hives Penicillins Allergy (Severe, Verified 04/18/23 02:21) Anaphylaxis Medication List - Last Reconciled 09/23/22 by Viridiana Silva MD aspirin (Adult Low Dose Aspirin) 81 mg PO DAILY biotin 1,000 mcg PO DAILY cholecalciferol (vitamin D3) (Vitamin D3) 25 mcg PO DAILY multivitamin 1 tab PO DAILY simvastatin 40 mg PO BEDTIME Tobacco use date assessed: 09/23/22 Last assessed Fall Risk: 09/23/22 (dizzy when gets out of bed) HPI 6 Mo follow up / Labs HPI Details 72-year-old lady with dyslipidemia ivone ntly on simvastatin 40 mg at bedtime, here today for follow-up. She has been feeling well, with no complaints at present time. Latest fasting labs are as follows below Laboratory Tests 09/13/22 09/13/22 07:05 07:05 Estimat Average Gl ucose 146 Hemoglobin A1c % 6.7 AST 25 ALT 28 Triglycerides 226 Cholesterol 214 LDL Cholesterol, C alc 124 HDL Cholesterol 45 PFSH Medical History Family history of breast cancer in sister Hx of heartburn Hx of renal calculi Impaired fasting glucose Lumbago Menopause Mixed dyslipidemia Osteopenia of multiple sites Renal calculi Temporomandibular joint pain Surgical History History of bladder suspension procedure Hx of colonoscopy Hx of hysterectomy Family History Father Emphysema, unspecified Mother Mental health disorder Sister Breast cancer Brother No problems noted. Son No problems noted. Daughter No problems noted. Sister No problems noted. Sister No problems noted. Maternal Grandfather No problems noted. Maternal Grandmother No problems noted. Paternal Grandfather No problems noted. Paternal Grandmother No problems noted. Social History Housing: Apartment Alcohol intake: never Patient Tobacco Use Status: Former Tobacco user Quit Date: 2004 Cigarette Packs Per Day: 1 Years Smoked: 30 yrs e-Cigarette/Vaping Use: Never Used service: No Current occupational status: retired Cognitive needs: No Hearing needs: No Vision needs: Yes Questionnaire PHQ-9 Over the last 2 weeks, how often have you been bothered by any of the following problems? 1. Little interest or pleasure in doing things: not at all 2. Feeling down, depressed, or hopeless: not at all 3. Trouble falling or staying asleep, or sleeping too much: several days 4. Feeling tired or having little energy: more than half the days 5. Poor appetite or overeating: several days 6. Feeling bad about yourself - or that you are a failure or have let yourself or your family down: not at all 7. Trouble concentrating on things, such as reading the newspaper or watching television: not at all 8. Moving or speaking so slowly that other people could have noticed. Or the opposite - being so fidgety or restless that you have been moving around a lot more than usual: not at all 9. Thoughts that you would be better off or of hurting yourself in some way: not at all Total score: 4 Depression Screening Interpretation: Negative 58731 - PHQ-9 Billing: Yes Source: Developed by Drs. Ole Abrams, Karissa Green, Jl Nicholson and colleagues, with an educational kelli from [employer]. Thrive Questionnaire Date Thrive assessed: 09/23/22 I am a: Patient What is your living situation today?: I have a steady place to live Within the past 12 months, did the food you bought not last and you didn't have the money to get more?: Never true Within the past 12 months, did you worry whether your food would run out before you got money to buy more?: Never true Do you have trouble paying for medicines?: No Do you have trouble getting transportation to medical appointments?: No Do you have trouble paying your heating and electricity bill?: No Do you have trouble taking care of your child, family member or friend?: No Do you have trouble with day-to-day activities such as bathing, preparing meals, shopping, managing finances, etc.?: No Are you currently unemployed and looking for a job?: No Are you interested in more education?: No AUDIT C Alcohol Use Questionnaire (AUDIT-C) 1. How often do you have a drink containing alcohol?: Never Total Score: 0 JASON-7 AMB Questionnaire JASON-7 Date JASON - 7 assessed: 09/23/22 Feeling nervous, anxious, or on edge: 0 = Not at all Not being able to stop or control worryin = Not at all Worrying too much about different things: 0 = Not at all Trouble relaxin = Not at all Being so restless that it is hard to sit still: 0 = Not at all Becoming easily annoyed or irritable: 0 = Not at all Feeling afraid as if something awful might happen: 0 = Not at all Total JASON-7 score (0-4 normal; 5-9 mild; 10-14 moderate; 15-21 severe): 0 Source: Developed by Drs. Ole Abrams, Karissa Green, Jl Nicholson and colleagues, with an educational kelli from [employer]. JASON-7 Assessment Billing JASON-7 Assessment Tool: JASON-7 Assessment 11458 Review of Systems Const All systems reviewed & are unremarkable except as noted in HPI and below Reports no additional complaints Eyes Reports no additional complaints ENT Reports no additional complaints Card Denies dyspnea Resp Denies cough and Denies dyspnea GI Reports no additional complaints Reports no additional complaints Musc Reports no additional complaints and Reports back pain Skin/Breast Denies rash and Denies unusual bruising Neuro Reports no additional complaints Psych Reports no additional complaints Endo Reports no additional complaints Aramis/Lymph Reports no additional complaints Aller/Immun Reports no additional complaints Physical exam (Primary Care) Vital Signs: Last Vital Signs Pulse 73 09/23/22 15:08 BP 144/84 H 09/23/22 15:08 Pulse Ox 96 09/23/22 15:08 Oxygen Delivery Method Room Air 09/23/22 15:08 BMI result Body Mass Index 29.3 Tobacco/Smoking Status: Tobacco use Status Tobacco use date assessed 09/23/22 09/23/22 15:15 Patient Tobacco Use Status Former Tobacco user 09/23/22 15:15 e-Cigarette/Vaping Use Never Used 09/23/22 15:15 Depression Screening Interpretation: Negative Thrive Assessment: Date of Thrive Assessment Date Thrive assessed 09/23/22 09/23/22 15:15 Const Other: Alert oriented x3, no acute distress noted ambulatory normal gait Orientation/consciousness: patient oriented x3 HENMT Mouth: Normal oral and palatal mucosa present and moist mucous membranes Eyes General: appearance normal, both eyes and all related structures Neck Other: Supple , no lymphadenopathy thyroid gland nonpalpable Resp Auscultation: clear to auscultation bilaterally Cardio Other: S1-S2 present regular rate and rhythm GI Palpation (GI): Soft to palpation, nontender, no guarding and no masses General: Yes no CVA tenderness Back/Spine/Pelvis Back: no CVA tenderness and No back tenderness Skin General skin exam: no rashes or lesions noted Neuro General: patient oriented x3, tone normal, moves all extremities and no focal motor deficits Extrem General: Yes full ROM, Yes no joint enlargement, Yes no clubbing, cyanosis or edema and Yes normal gait Assessment and Plan Assessment & Plan (1) Mixed dyslipidemia: Code(s): E78.2 - Mixed hyperlipidemia Plan: Reviewed recent fasting lipid profile with patient with levels within normal limits except for elevated triglycerides. . Continue with simvastatin 40 mg at bedtime, , in addition to adherence to low-cholesterol diet and regular exercise, at least 30 minutes 3 to 4 times a week. Advised patient to make healthy food choices, eat more fruits, vegetables, whole grains, wild caught fish and low-fat dairy. Limit amount of meat and fried or fatty food products, as well as processed foods and fast foods. Follow-up scheduled with repeat fasting lipid panel in 4 months. (2) Osteopenia of multiple sites: Code(s): M85.89 - Other specified disorders of bone density and structure, multiple sites Plan: Continue with regular weight-bearing exercise, take adequate calcium from dietary sources and continue with taking vitamin-D 3 supplements daily (3) Impaired fasting glucose: Code(s): R73.01 - Impaired fasting glucose Plan: Your fasting blood sugars elevated above 100 mg/dL. Impaired glucose metabolism O2 at risk for developing diabetes mellitus type 2, as well as heart attack and stroke later on. Lifestyle changes at just weight loss, healthy eating habits, and regular exercise are important, and can prevent the progression to diabetes Orders: Orders Alanine Aminotransferase 01/18/23 E78.2 - Mixed hyperlipidemia, M85.89 - Other specified disorders of bone density and structure, multiple sites, R73.01 - Impaired fasting glucose Lipid Panel 01/18/23 E78.2 - Mixed hyperlipidemia, M85.89 - Other specified disorders of bone density and structure, multiple sites, R73.01 - Impaired fasting glucose Aspartate Amino Transferase 01/18/23 E78.2 - Mixed hyperlipidemia, M85.89 - Other specified disorders of bone density and structure, multiple sites, R73.01 - Impaired fasting glucose Hemoglobin A1c 01/18/23 E78.2 - Mixed hyperlipidemia, M85.89 - Other specified disorders of bone density and structure, multiple sites, R73.01 - Impaired fasting glucose Basic Metabolic Panel Fasting 01/18/23 E78.2 - Mixed hyperlipidemia, M85.89 - Other specified disorders of bone density and structure, multiple sites, R73.01 - Impaired fasting glucose Vitamin D 25-OH Total 01/18/23 E78.2 - Mixed hyperlipidemia, M85.89 - Other specified disorders of bone density and structure, multiple sites, R73.01 - Impaired fasting glucose Coding Level of Care Code Est Pt Level 3 (45601) Diagnoses Mixed dyslipidemia E78.2 Osteopenia of multiple sites M85.89 Impaired fasting glucose R73.01 Additional Codes JASON-7 Assessment Billing - JASON-7 Assessment Tool: JASON-7 Assessment 08490 ([id number])
== END 2022-09-23 16:30 | disposition home or self-care (01) ==
LOC: HO.HMGC 14:47
PROVIDERS: PCP Internal Medicine; Visit Provider Internal Medicine
DX: E78.2 Mixed hyperlipidemia (principal); M85.89 Other specified disorders of bone density and structure, multiple sites; R73.01 Impaired fasting glucose
CPT/HCPCS: 99213

== ENCOUNTER 2022-11-01 11:18 | Outpatient (REF) | payer OTHER, SELFPAY | END 2022-11-01 11:19 | disposition home or self-care (01) | LOC: HO.MAMMO 11:18 | PROVIDERS: PCP Internal Medicine; Visit Provider Internal Medicine | DX: Z13.89 Encounter for screening for other disorder (principal) ==

== ENCOUNTER 2023-04-06 06:04 | Outpatient (REF) | payer OTHER, SELFPAY ==
[2023-04-06 11:32] LABS: Estimated Average Glucose 143 mg/dL; Hemoglobin A1C 148.8316 umol/L; Hemoglobin A1c % 6.6 % (<6.0)
[2023-04-06 11:38] LABS: Alanine Aminotransferase 29 U/L (0-31); Anion Gap 13 (12-20); Aspartate Amino Transferase 25 U/L (5-31); Blood Urea Nitrogen 11 mg/dL (9-16); Calcium 9.3 mg/dL (8.4-10.2); Carbon Dioxide 28 mmol/L (22-29); Chloride 104 mmol/L (96-108); Cholesterol 193 mg/dL (<200); Estimated Glomerular Filt Rate > 60; Glucose Fasting 138 mg/dL (60-99); HDL Cholesterol 42 mg/dL (>40); LDL Cholesterol Calculated 106 mg/dL (<100); Potassium 3.8 mmol/L (3.3-5.1); Sodium 141 mmol/L (135-145); Triglycerides 226 mg/dL (<150)
[2023-04-06 11:57] LABS: Vitamin D 25-OH Total 55.1 ng/mL (>30)
== END 2023-04-06 06:05 | disposition home or self-care (01) ==
LOC: HO.HMGCLDS 06:04
PROVIDERS: PCP Internal Medicine; Visit Provider Internal Medicine
DX: E78.2 Mixed hyperlipidemia (principal); M85.89 Other specified disorders of bone density and structure, multiple sites; R73.01 Impaired fasting glucose
CPT/HCPCS: 36415; 80048; 80061; 82306; 83036; 84450; 84460

== ENCOUNTER 2023-04-14 14:55 | Outpatient (REF) | payer OTHER, SELFPAY | END 2023-04-14 14:56 | disposition home or self-care (01) | LOC: HO.MAMMO 14:55 | PROVIDERS: PCP Internal Medicine; Visit Provider Internal Medicine | DX: Z12.31 Encounter for screening mammogram for malignant neoplasm of breast (principal) | CPT/HCPCS: 77063; 77067 ==

== ENCOUNTER → 2023-04-14 15:15 | Outpatient (BNV) | payer OTHER, SELFPAY | PROVIDERS: PCP Internal Medicine; Visit Provider Radiology Diagnostic Radiology | DX: Z12.31 Encounter for screening mammogram for malignant neoplasm of breast (principal) | CPT/HCPCS: 77063; 77067 ==

== ENCOUNTER → 2023-05-02 16:03 | Outpatient (AMB) | payer OTHER, SELFPAY ==
--- NOTE | 2023-05-02 16:04 | MHC.PC.OV ---
Intake Visit Reasons: ffup lab results Intake Note: Pt is having a telehealth visit to discuss recent lab results Allergies codeine Allergy (Severe, Verified 05/02/23 16:23) Hives Penicillins Allergy (Severe, Verified 05/02/23 16:23) Anaphylaxis Medication List - Last Reconciled 05/02/23 by Viridiana Silva MD biotin 1,000 mcg PO DAILY cholecalciferol (vitamin D3) (Vitamin D3) 25 mcg PO DAILY multivitamin 1 tab PO DAILY omega 6-oet-blz-fish oil 1,200 (144-216) mg (Fish Oil) 2000mg simvastatin 40 mg PO BEDTIME Tobacco use date assessed: 05/02/23 Fall risk assessment: No Falls in past year Last assessed Fall Risk: 05/02/23 Dental Screening Dental Screen Date: 05/02/23 Did you have a dental visit in the last 12 months?: Yes Did you have a dental problem in the last 6 months where you did not have access to dental care?: Yes Was dental information given to patient?: Patient has dentist HPI HPI Comments History of Present Illness Details 72-year-old lady here today for follow-up on her diabetes mellitus and mixed dyslipidemia. She has just recently came back from vacation in [place] for a week and admits to not following any diet during her vacation, but has done a lot of hiking . She has been feeling well, with no other complaints at present time. She states that she is already up-to-date with her latest COVID vaccine booster and had her flu shot given at [facility] Medical History Diabetes mellitus, without long-term current use of insulin Hx of renal calculi Lumbago Family history of breast cancer in sister Temporomandibular joint pain Mixed dyslipidemia Osteopenia of multiple sites Menopause Hx of heartburn Surgical History History of bladder suspension procedure Hx of hysterectomy Hx of colonoscopy Family History Father Emphysema, unspecified Mother Mental health disorder Sister Breast cancer Brother No problems noted. Son No problems noted. Daughter No problems noted. Sister No problems noted. Sister No problems noted. Maternal Grandfather No problems noted. Maternal Grandmother No problems noted. Paternal Grandfather No problems noted. Paternal Grandmother No problems noted. Social History Housing: Apartment Alcohol intake: never Patient Tobacco Use Status: Former Tobacco user Quit Date: 2004 Cigarette Packs Per Day: 1 Years Smoked: 30 yrs Packs Per Year: 0 e-Cigarette/Vaping Use: Never Used service: No Current occupational status: retired Cognitive needs: No Hearing needs: No Vision needs: Yes Questionnaire Thrive Questionnaire Date Thrive assessed: 09/23/22 JASON-7 AMB Questionnaire JASON-7 Date JASON - 7 assessed: 09/23/22 Source: Developed by Drs. Ole Abrams, Karissa Green, Jl Nicholson and colleagues, with an educational kelli from [employer]. Review of Systems Const Reports no additional complaints Eyes Reports no additional complaints ENT Reports no additional complaints Card Denies dyspnea Resp Denies cough and Denies dyspnea GI Reports no additional complaints Reports no additional complaints Musc Reports no additional complaints and Reports back pain Skin/Breast Denies rash and Denies unusual bruising Neuro Reports no additional complaints Psych Reports no additional complaints Endo Reports no additional complaints Aramis/Lymph Reports no additional complaints Aller/Immun Reports no additional complaints Physical exam (Primary Care) Tobacco/Smoking Status: Tobacco use Status Tobacco use date assessed 05/02/23 05/02/23 16:06 Patient Tobacco Use Status Former Tobacco user 05/02/23 16:06 e-Cigarette/Vaping Use Never Used 05/02/23 16:06 Thrive Assessment: Date of Thrive Assessment Date Thrive assessed 09/23/22 05/02/23 16:06 Telehealth Telehealth Location of provider rendering services: practice address Location of patient: address on file Patient Identification confirmed using: Name, : Yes Patient verbally consented to treatment: Yes Patient verbally consented to billing insurance company: Yes Patient informed of any privacy concerns related to visit: Yes Minutes spent on Phone/Video with Pt.: 15 Results Reviewed Results Reviewed: ENTERED: 04/06/[address]: ORDERED: Met Prof Fast, AST, ALT, Lipid Panel, Vitamin D 25-OH Test Result Flag Reference Site Sodium 141 135-145 mmol/L Potassium 3.8 3.3-5.1 mmol/L CL 104 96-108 mmol/L CO2 28 22-29 mmol/L Gap 13 12-20 BUN 11 9-16 mg/dL Creat 0.75 0.5-1.4 mg/dL EGFR > 60 NOTE: For -[place] individuals, multiply the result by 1.210. Chronic Kidney Disease: Estimated GFR < 60 mL/min/1.73m2 Severe Kidney Disease: Estimated GFR < 15 mL/min/1.73m2 FBS 138 H 60-99 mg/dL A fasting glucose of 126 mg/dl or greater on more than one occasion is considered diagnostic of diabetes. CA 9.3 8.4-10.2 mg/dL AST (GOT) 25 5-31 U/L ALT (GPT) 29 0-31 U/L Triglyceride 226 H <150 mg/dL Desirable Triglyceride: less than 150 mg/dL Borderline High Triglyceride 150-199 mg/dL High Triglyceride: 200-499 mg/dL Very High Triglyceride: greater than or equal to 5OO mg/dL Cholesterol 193 <200 mg/dL Desirable Cholesterol: less than 200 mg/dL Borderline High Cholesterol: 200-239 mg/dL High Cholesterol: greater than 239 mg/dL LDL Calculated 106 H <100 mg/dL Desirable LDL: less than 100 mg/dL Near Optimal/Above Optimal LDL: 110-129 mg/dL Borderline High LDL: 130-159 mg/dL High LDL: 160-189 mg/dL Very High LDL: greater than or equal to 190 mg/dL HDL 42 >40 mg/dL Desirable HDL: greater than 40 mg/dL Note: This HDL assay may give artificially low results in patients with liver disease. Vit D 25-OH Tot 55.1 >30 ng/mL Health Based Reference Values* < 20 ng/mL Deficient 20-30 ng/mL Insufficient > 30 ng/mL Sufficient Laboratory Tests 04/06/23 06:10 Estimat Average Glucose 143 Hemoglobin A1c % 6.6 H Assessment and Plan Assessment & Plan (1) Mixed dyslipidemia: Code(s): E78.2 - Mixed hyperlipidemia Plan: Reviewed recent fasting lipid profile with patient with improving LDL cholesterol, and triglyceride levels as compared to last check. Continue taking Kell 3 fatty acid supplements 2 capsules twice a day, in addition to adherence to low-cholesterol diet and regular exercise, at least 30 minutes 3 to 4 times a week. Advised patient to make healthy food choices, eat more fruits, vegetables, whole grains, wild caught fish and low-fat dairy. Limit amount of meat and fried or fatty food products, as well as processed foods and fast foods. Follow-up scheduled with repeat fasting lipid panel in 3 months. (2) Diabetes mellitus, without long-term current use of insulin: Code(s): E11.9 - Type 2 diabetes mellitus without complications Plan: Recent lab results reviewed with patient, with sugar and hemoglobin A1c at 6.6%. Patient hesitant to start taking medications for diabetes, would like to continue trying to improve blood sugar levels through diet and exercise. Counseled regarding importance of yearly diabetes retinopathy screening. Patient advised to inspect feet daily, for any signs of injury, callus or infection. Compliance with diet and regular exercise again stressed. Blood pressure goal is less than 130/80, goal LDL is less than 100 and goal hemoglobin A1c is less than 7% follow-up appointment made in-3--months, after fasting labs done. Orders: Orders Hemoglobin A1c 08/08/23 E11.9 - Type 2 diabetes mellitus without complications, E78.2 - Mixed hyperlipidemia Lipid Panel 08/08/23 E11.9 - Type 2 diabetes mellitus without complications, E78.2 - Mixed hyperlipidemia Coding Level of Care Code Est Pt Level 3 (94173) Diagnoses Mixed dyslipidemia E78.2 Diabetes mellitus, without long-term current use of insulin E11.9
== END ==
PROVIDERS: PCP Internal Medicine; Visit Provider Internal Medicine
DX: E78.2 Mixed hyperlipidemia (principal); E11.9 Type 2 diabetes mellitus without complications
CPT/HCPCS: 99213

== ENCOUNTER 2023-10-27 06:07 | Outpatient (REF) | payer OTHER, SELFPAY ==
[2023-10-27 10:52] LABS: Estimated Average Glucose 163 mg/dL; Hemoglobin A1c % 7.3 % (<6.0)
[2023-10-27 11:06] LABS: Cholesterol 185 mg/dL (<200); HDL Cholesterol 44 mg/dL (>40); LDL Cholesterol Calculated 108 mg/dL (<100); Triglycerides 165 mg/dL (<150)
== END 2023-10-27 06:08 | disposition home or self-care (01) ==
LOC: HO.HMGCLDS 06:07
PROVIDERS: PCP Internal Medicine; Visit Provider Internal Medicine
DX: E78.2 Mixed hyperlipidemia (principal); E11.9 Type 2 diabetes mellitus without complications
CPT/HCPCS: 36415; 80061; 83036

== ENCOUNTER 2023-10-27 12:48 | Outpatient (AMB) | payer OTHER, SELFPAY ==
[2023-10-27 12:53] VITALS: BP 128/82; PULSE 75; O2SAT 98; BMI 29.5
--- NOTE | 2023-10-27 12:53 | MHC.PC.OV ---
Vital Signs 10/27/23 12:53 Height 5 ft Weight 151 lb 2 oz BMI 29.5 BP 128/82 Blood Pressure Location Lt brachial Position Sitting Pulse 75 Pulse Source Pulse Oximeter Pulse Oximetry (%) 98 Oxygen Delivery Method Room Air Intake Visit Reasons: Physical exam Intake Note: Pt is here today for her annual physical Last mammogram 04/14/23 Last bone density 03/26/21 Last flu 03/05/23 No colonoscopy Allergies codeine Allergy (Severe, Verified 10/27/23 12:58) Hives Penicillins Allergy (Severe, Verified 10/27/23 12:58) Anaphylaxis Medication List - Last Reconciled 10/27/23 by Viridiana Silva MD biotin 1,000 mcg PO DAILY cholecalciferol (vitamin D3) (Vitamin D3) 25 mcg PO DAILY multivitamin 1 tab PO DAILY omega 0-lec-qbi-fish oil 1,200 (144-216) mg (Fish Oil) 2000mg simvastatin 40 mg PO BEDTIME Tobacco use date assessed: 10/27/23 Fall risk assessment: No Falls in past year Last assessed Fall Risk: 10/27/23 Dental Screening Dental Screen Date: 10/27/23 Did you have a dental visit in the last 12 months?: Yes Did you have a dental problem in the last 6 months where you did not have access to dental care?: No Was dental information given to patient?: Patient has dentist HPI Physical exam HPI Details 73-year-old female here today for her physical exam. She has hyperlipidemia currently on simvastatin 40 mg at bedtime and Colo 3 fatty acid supplements daily. Overdue for her cholesterol check. She has osteopenia in her left femoral neck as noted on bone density scan done in 2020.. She is up-to-date with her screening mammogram due again in March 2024, and is due now for a repeat bone density scan. She is up-to-date with her screening colonoscopy done by Dr. Peres in 2020, with internal hemorrhoids and diverticulosis seen, repeat due again in 2025 due to previous history of tubular adenoma of colon. Complains of pain in her right upper arm and shoulder present now since March last year. No history of trauma, states that shoulder started hurting after driving to the [employer]. She has also been complaining of burning sensation and pain over her left hip joint as worse when she lies on her left side when sleeping has been taking Advil which affords only temporary relief Had recent fasting labs done which showed hemoglobin A1c at 7.3%, currently not on any medication for her diabetes. Patient admits to eating a lot of carbs/pasta and loves drinking soft drinks. She also does not do any exercise. [facility] Medical History Diabetes mellitus, without long-term current use of insulin Hx of renal calculi Lumbago Family history of breast cancer in sister Temporomandibular joint pain Mixed dyslipidemia Osteopenia of multiple sites Menopause Hx of heartburn Surgical History History of bladder suspension procedure Hx of hysterectomy Hx of colonoscopy Family History Father Emphysema, unspecified Mother Mental health disorder Sister Breast cancer Brother No problems noted. Son No problems noted. Daughter No problems noted. Sister No problems noted. Sister No problems noted. Maternal Grandfather No problems noted. Maternal Grandmother No problems noted. Paternal Grandfather No problems noted. Paternal Grandmother No problems noted. Social History Housing: Apartment Alcohol intake: never Patient Tobacco Use Status: Former Tobacco user Quit Date: 2004 Cigarette Packs Per Day: 1 Years Smoked: 30 yrs e-Cigarette/Vaping Use: Never Used service: No Current occupational status: retired Cognitive needs: No Hearing needs: No Vision needs: Yes Questionnaire PHQ-9 Over the last 2 weeks, how often have you been bothered by any of the following problems? 1. Little interest or pleasure in doing things: not at all 2. Feeling down, depressed, or hopeless: not at all 3. Trouble falling or staying asleep, or sleeping too much: several days 4. Feeling tired or having little energy: several days 5. Poor appetite or overeating: not at all 6. Feeling bad about yourself - or that you are a failure or have let yourself or your family down: not at all 7. Trouble concentrating on things, such as reading the newspaper or watching television: not at all 8. Moving or speaking so slowly that other people could have noticed. Or the opposite - being so fidgety or restless that you have been moving around a lot more than usual: not at all 9. Thoughts that you would be better off or of hurting yourself in some way: not at all Total score: 2 Depression Screening Interpretation: Negative Depression Screening Done: Yes 02503 - PHQ-9 Billing: Yes Source: Developed by Drs. Ole Abrams, Karissa Green, Jl Nicholson and colleagues, with an educational kelli from [employer]. Thrive Questionnaire Date Thrive assessed: 10/27/23 I am a: Patient What is your living situation today?: I have a steady place to live Within the past 12 months, did the food you bought not last and you didn't have the money to get more?: Never true Within the past 12 months, did you worry whether your food would run out before you got money to buy more?: Never true Do you have trouble paying for medicines?: No Do you have trouble getting transportation to medical appointments?: No Do you have trouble paying your heating and electricity bill?: No Do you have trouble taking care of your child, family member or friend?: No Do you have trouble with day-to-day activities such as bathing, preparing meals, shopping, managing finances, etc.?: No Are you currently unemployed and looking for a job?: No Are you interested in more education?: No THRIVE Score: 0 AUDIT C Alcohol Use Questionnaire (AUDIT-C) 1. How often do you have a drink containing alcohol?: Never 3. How often do you have six or more drinks on one occasion?: Never Total Score: 0 Score Reviewed/Action Taken: Yes JASON-7 AMB Questionnaire JASON-7 Date JASON - 7 assessed: 10/27/23 Feeling nervous, anxious, or on edge: 0 = Not at all Not being able to stop or control worryin = Not at all Worrying too much about different things: 1 = Several days Trouble relaxin = Not at all Being so restless that it is hard to sit still: 0 = Not at all Becoming easily annoyed or irritable: 1 = Several days Feeling afraid as if something awful might happen: 0 = Not at all Total JASON-7 score (0-4 normal; 5-9 mild; 10-14 moderate; 15-21 severe): 2 Source: Developed by Drs. Ole Abrams, Karissa Green, Jl Nicholson and colleagues, with an educational kelli from [employer]. 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 surgery and laser surgery Reports no additional complaints ENT Reports no additional complaints Card Denies chest pain, Denies irregular heart rhythm, Denies lightheadedness and Denies dyspnea Resp Denies cough and Denies dyspnea GI Reports no additional complaints Reports no additional complaints Musc Reports as per HPI Skin/Breast Denies rash and Denies unusual bruising Neuro Reports no additional complaints Psych Reports no additional complaints Endo Reports no additional complaints Aramis/Lymph Reports no additional complaints Aller/Immun Reports no additional complaints Physical exam (Primary Care) Vital Signs: Last Vital Signs Pulse 75 10/27/23 12:53 BP 128/82 10/27/23 12:53 Pulse Ox 98 10/27/23 12:53 Oxygen Delivery Method Room Air 10/27/23 12:53 BMI result Body Mass Index 29.5 Tobacco/Smoking Status: Tobacco use Status Tobacco use date assessed 10/27/23 10/27/23 12:58 Patient Tobacco Use Status Former Tobacco user 10/27/23 12:56 e-Cigarette/Vaping Use Never Used 10/27/23 12:56 PHQ-9: PHQ-9 Score PHQ-9: Total score 2 10/27/23 13:33 Depression Screening Interpretation: Negative Thrive Assessment: Date of Thrive Assessment Date Thrive assessed 10/27/23 10/27/23 13:33 Const Other: Alert oriented x3, no acute distress noted ambulatory normal gait Orientation/consciousness: patient oriented x3 HENMT Mouth: Normal oral and palatal mucosa present and moist mucous membranes Eyes General: appearance normal, both eyes and all related structures Neck Other: Supple , no lymphadenopathy thyroid gland nonpalpable Chest Chest palpation & inspection: normal inspection of the chest Breast/axilla inspection: normal inspection of the breasts Breast/axilla palpation: normal palpation of the breasts Resp Auscultation: clear to auscultation bilaterally Cardio Other: S1-S2 present regular rate and rhythm GI Palpation (GI): Soft to palpation, nontender, no guarding and no masses General: Yes no CVA tenderness Back/Spine/Pelvis Other: Slight tenderness on palpation over left anterior hip, full range of motion of left hip bilateral and bilateral shoulder joint, negative impingement slight tenderness over right AC Back: no CVA tenderness Skin General skin exam: no rashes or lesions noted Neuro General: patient oriented x3, tone normal, moves all extremities and no focal motor deficits Extrem General: Yes full ROM, Yes no joint enlargement, Yes no clubbing, cyanosis or edema and Yes normal gait Psych Appearance: grossly normal and well kempt Mental Status: mental status grossly normal Speech and movement: Normal speech and movement present Affect: normal affect Results Reviewed Results Reviewed: Name: Arianna Shen Age/Sex: 73/F : 1950 Unit#: [id number] Attend Dr: Viridiana Silva MD Re10/27/23 Status: REG REF Location: [facility] Disch: SPEC : [id number] SHAWN: 10/27/23-616 STATUS: COMP REQ : [id number] RECD: 10/27/23-[address]: Viridiana Silva MD COMP: 10/27/23-1051 ENTERED: 10/27/23-[address] [facility] [address]: ORDERED: Hgb A1c Test Result Flag Reference A1c % 7.3 H <6.0 % Hemoglobin A1C Reference Range Adults: 4.8 - 6.0 % Non diabetic: < 6.0 % Goal: < 7.0 % Additional Action Suggested: > 8.0 % Note: Hemoglobin A1c results are invalid for patients with abnormal amounts of HbF. Blood transfusions may impact the HbA1c concentration in the patient sample. Est. Avg. Gluc 163 mg/dL eAG = Estimated average glucose which is %A1C expressed as Name: Arianna Shen Age/Sex: 73/F : 1950 Unit#: [id number] Attend Dr: Viridiana Silva MD Re10/27/23 Status: REG REF Location: [facility] Disch: SPEC : [id number] SHAWN: 10/27/23 STATUS: COMP REQ : [id number] RECD: 10/27/[address]: Viridiana Silva MD COMP: 10/27/23 ENTERED: 10/27/[address] [facility] [address]: ORDERED: Lipid Panel Test Result Flag Reference Triglyceride 165 H <150 mg/dL Desirable Triglyceride: less than 150 mg/dL Borderline High Triglyceride 150-199 mg/dL High Triglyceride: 200-499 mg/dL Very High Triglyceride: greater than or equal to 5OO mg/dL Cholesterol 185 <200 mg/dL Desirable Cholesterol: less than 200 mg/dL Borderline High Cholesterol: 200-239 mg/dL High Cholesterol: greater than 239 mg/dL LDL Calculated 108 H <100 mg/dL Desirable LDL: less than 100 mg/dL Near Optimal/Above Optimal LDL: 110-129 mg/dL Borderline High LDL: 130-159 mg/dL High LDL: 160-189 mg/dL Very High LDL: greater than or equal to 190 mg/dL HDL 44 >40 mg/dL Desirable HDL: greater than 40 mg/dL Note: This HDL assay may give artificially low results in patients with liver disease. Assessment and Plan Assessment & Plan (1) Annual visit for general adult medical examination with abnormal findings: Code(s): Z00.01 - Encounter for general adult medical examination with abnormal findings Plan: Reviewed recent fasting lab results with patient.. Recommended dental visit every 6 months and regular eye exams, yearly, currently up-to-date s. Take adequate calcium in diet and vitamin-D 3 at 2000 IU per cap once a day, in addition to weight-bearing exercises to help maintain good muscle tone and weight control. Instructed to do self-breast exam, and continue yearly mammogram, already scheduled for April 19 and ordered a bone density scan to be done at the same time. Up-to-date with her vaccines, up-to-date with her screening: (2) Chronic right shoulder pain: Code(s): M25.511 - Pain in right shoulder; G89.29 - Other chronic pain Plan: Ordered x-ray of right shoulder joint, and referred to physical therapy for further evaluation management, advised to try diclofenac gel massaged on to affected area to 2 3 times a day as needed (3) Pain of left hip: Code(s): M25.552 - Pain in left hip Plan: X-ray of left hip ordered, referred for physical therapy (4) Mixed dyslipidemia: Code(s): E78.2 - Mixed hyperlipidemia Plan: Reviewed recent fasting lipid profile with patient with mildly elevated LDL cholesterol . Continue with simvastatin 40 mg at bedtime , in addition to adherence to low-cholesterol diet and regular exercise, at least 30 minutes 3 to 4 times a week. Advised patient to make healthy food choices, eat more fruits, vegetables, whole grains, wild caught fish and low-fat dairy. Limit amount of meat and fried or fatty food products, as well as processed foods and fast foods. Follow-up scheduled with repeat fasting lipid panel in months. (5) Diabetes mellitus, without long-term current use of insulin: Code(s): E11.9 - Type 2 diabetes mellitus without complications Plan: Hemoglobin A1c now elevated at 7.3%, will start on metformin ER 500 mg to take 1 tablet at night with supper. Reinforced importance of following a diabetic diet and getting regular exercise, advised to stop drinking soda cut back on pasta intake and get regular exercise. Up-to-date with her diabetes retinopathy screening goes to [facility]. Up-to-date with all her vaccinations (6) Osteopenia of multiple sites: Code(s): M85.89 - Other specified disorders of bone density and structure, multiple sites Plan: Ordered a bone dens scan to be scheduled together with her screening mammogram dated for 04/19/2024. Reinforced importance of doing regular weight-bearing exercise, take adequate calcium from dietary sources and to continue taking vitamin-D 3 at least 2000 units daily Orders: Orders XR hip LT min 2V Today M25.552 - Pain in left hip Hemoglobin A1c 02/13/24 E11.9 - Type 2 diabetes mellitus without complications, E78.2 - Mixed hyperlipidemia XR shoulder RT min 2V Today G89.29 - Other chronic pain, M25.511 - Pain in right shoulder PT Evaluation and Treatment Today G89.29 - Other chronic pain, M25.511 - Pain in right shoulder, M25.552 - Pain in left hip Lipid Panel 02/13/24 E11.9 - Type 2 diabetes mellitus without complications, E78.2 - Mixed hyperlipidemia Alanine Aminotransferase 02/13/24 E11.9 - Type 2 diabetes mellitus without complications, E78.2 - Mixed hyperlipidemia Aspartate Amino Transferase 02/13/24 E11.9 - Type 2 diabetes mellitus without complications, E78.2 - Mixed hyperlipidemia Basic Metabolic Panel Fasting 02/13/24 E11.9 - Type 2 diabetes mellitus without complications, E78.2 - Mixed hyperlipidemia XR DEXA axial skeleton Today M85.89 - Other specified disorders of bone density and structure, multiple sites, Z78.0 - Asymptomatic menopausal state Medications: New metformin ER 500 mg PO QPM 90 tabs 1RF Coding Level of Care Code Est Pt Prev Care >65y(39508) Diagnoses Annual visit for general adult medical examination with abnormal findings Z00.01 Chronic right shoulder pain M25.511; G89.29 Pain of left hip M25.552 Mixed dyslipidemia E78.2 Diabetes mellitus, without long-term current use of insulin E11.9 Osteopenia of multiple sites M85.89 Additional Codes JASON-7 Assessment Billing - JASON-7 Assessment Tool: JASON-7 Assessment 13631 ([id number])
== END 2023-10-27 14:44 | disposition home or self-care (01) ==
PROVIDERS: PCP Internal Medicine; Visit Provider Internal Medicine
DX: Z00.01 Encounter for general adult medical examination with abnormal findings (principal); E11.9 Type 2 diabetes mellitus without complications; M25.511 Pain in right shoulder; G89.29 Other chronic pain; M25.552 Pain in left hip; E78.2 Mixed hyperlipidemia; M85.89 Other specified disorders of bone density and structure, multiple sites
CPT/HCPCS: 99214; 99397

== ENCOUNTER 2023-11-09 12:53 | Outpatient (REF) | payer OTHER, SELFPAY ==
--- NOTE | ~2023-11-09 | XR_ITS ---
EXAMINATION: XR SHOULDER RIGHT XR HIP, LEFT CLINICAL INFORMATION: Pain in right shoulder, pain in left hip. TECHNIQUE: 2 views right shoulder. 2 views left hip. COMPARISON: None available. FINDINGS: Left Hip: Metallic device overlies the left hemipelvis and correlation with clinical exam recommended to determine significance. Oval sclerotic focus overlying the right pubic symphysis may represent a bony lesion such as a bone island versus a soft tissue calcification. Left hip alignment is preserved. Mild degenerative changes with mild joint space narrowing left hip. Right Shoulder: Mild degenerative changes in the acromioclavicular joints. Small corticated cystic lucency along the inferior aspect of the acromion. Glenohumeral alignment is preserved. Dextroscoliosis with degenerative changes in the imaged upper thoracic spine. XR/XR hip LT min 2V IMPRESSION: 1. Mild degenerative changes in the left hip. 2. Mild degenerative changes right acromioclavicular joint. 3. Dextroscoliosis with degenerative changes in the imaged upper thoracic spine. 4. Metallic device overlies the left hemipelvis and correlation with clinical exam recommended to determine significance. 5. Oval sclerotic focus overlying the right pubic symphysis may represent a bony lesion such as a bone island versus a soft tissue calcification. This study was presented today 11/23/2023 for interpretation. Stat results provided at this time as requested by referring provider.
--- NOTE | ~2023-11-09 | XR_ITS ---
EXAMINATION: XR SHOULDER RIGHT XR HIP, LEFT CLINICAL INFORMATION: Pain in right shoulder, pain in left hip. TECHNIQUE: 2 views right shoulder. 2 views left hip. COMPARISON: None available. FINDINGS: Left Hip: Metallic device overlies the left hemipelvis and correlation with clinical exam recommended to determine significance. Oval sclerotic focus overlying the right pubic symphysis may represent a bony lesion such as a bone island versus a soft tissue calcification. Left hip alignment is preserved. Mild degenerative changes with mild joint space narrowing left hip. Right Shoulder: Mild degenerative changes in the acromioclavicular joints. Small corticated cystic lucency along the inferior aspect of the acromion. Glenohumeral alignment is preserved. Dextroscoliosis with degenerative changes in the imaged upper thoracic spine. XR/XR shoulder RT min 2V IMPRESSION: 1. Mild degenerative changes in the left hip. 2. Mild degenerative changes right acromioclavicular joint. 3. Dextroscoliosis with degenerative changes in the imaged upper thoracic spine. 4. Metallic device overlies the left hemipelvis and correlation with clinical exam recommended to determine significance. 5. Oval sclerotic focus overlying the right pubic symphysis may represent a bony lesion such as a bone island versus a soft tissue calcification. This study was presented today 11/23/2023 for interpretation. Stat results provided at this time as requested by referring provider.
== END 2023-11-09 12:54 | disposition home or self-care (01) ==
LOC: HO.HMGCX 12:53
PROVIDERS: PCP Internal Medicine; Visit Provider Internal Medicine
DX: M25.552 Pain in left hip (principal); M25.511 Pain in right shoulder; G89.29 Other chronic pain
CPT/HCPCS: 73030; 73502

== ENCOUNTER 2024-04-19 14:07 | Outpatient (REF) | payer OTHER, SELFPAY ==
--- NOTE | ~2024-04-19 | MM_ITS ---
EXAMINATION: MM SCREENING DIGITAL BREAST TOMOSYNTHESIS, BILATERAL CLINICAL INFORMATION: Screening. Asymptomatic. COMPARISON: Mammography: Comparison is made with available priors TECHNIQUE: Digital breast mammography with tomosynthesis is performed in both the craniocaudal and mediolateral oblique views along with computer-aided detection (CAD). FINDINGS: There are scattered areas of fibroglandular density (ACR BI-RADS breast composition Category b). Right: Asymmetry lateral breast anterior to middle depth on CC view. No suspicious calcifications or other abnormal findings. Left: Circumscribed oval mass retroareolar region slightly increased from priors. No suspicious calcifications or other abnormal findings. MM/MM tomosynthesis screening BI IMPRESSION: No mammographic evidence of malignancy. ASSESSMENT: BI-RADS BI-RADS 0 - Incomplete: Needs additional Imaging. RECOMMENDATION: 1. Additional views of the bilateral breasts 2. Targeted ultrasound if warranted after review of the additional views. 3. Radiology department staff will contact the patient for additional imaging. Additional Imaging required This examination should not preclude the clinical evaluation of a suspicious palpable abnormality. This patient's information was entered into a reminder system with a target due date for their next mammogram. Electronically signed by: Kate Demarco DO 04/27/2024 11:49 AM [facility]
--- NOTE | ~2024-04-19 | MM_ITS ---
EXAMINATION: BONE DENSITOMETRY CLINICAL INDICATION: Osteopenia. COMPARISON: Previous BD dated 03/26/2021 and baseline BD dated 06/26/2004. TECHNIQUE: Using a [employer] DXA System (software version: 13.1) manufactured by [employer], dual-energy x-ray absorptiometry was performed of the lumbar spine and left hip. The images are of good technical quality. Summary results are attached. FINDINGS: LEFT FEMUR, NECK: Current: BMD 0.858 g/cm2, Z-score 0.6, T-score -1.3, osteopenia. Prior: BMD 0.833 g/cm2. Baseline 03/20/2009: BMD 0.847 g/cm2. LEFT FEMUR, TOTAL: Current: BMD 0.895 g/cm2, Z-score 0.8, T-score -0.9, normal, 0.0% change from previous, 3.7% decrease from baseline (<5% change is not significant). Prior: BMD 0.895 g/cm2. Baseline 03/20/2009: BMD 0.929 g/cm2. AP SPINE L1-L4: Current: BMD 1.049 g/cm2, Z-score 0.7, T-score -1.1, osteopenia, 1.0% decrease from previous, 4.4% decrease from baseline (<5% change is not significant). Prior: BMD 1.060 g/cm2. Baseline: BMD 1.097 g/cm2. IDENTIFIED RISK FACTORS: Early menopause, hysterectomy, low calcium intake, secondary osteoporosis. HISTORY OF FRACTURE: None listed. MEDICATIONS: Multivitamin. MM/XR DEXA axial skeleton IMPRESSION: 1. DIAGNOSIS: Osteopenia based on the lowest T-score value of -1.3 in the femoral neck applying World Health Organization criteria. 2. 10-YEAR FRACTURE RISK PREDICTION, FRAX: Major osteoporotic fracture (clinical spine, forearm, hip or shoulder) 10.2%. Hip fracture 1.5%. 3. Treatment Recommendations: NOF guidelines recommend consideration for treatment in postmenopausal women and men age 50 and older presenting with the following: -A hip or vertebral (clinical or morphometric) fracture. -T-score less than or equal to -2.5 at the femoral neck or spine after appropriate evaluation to exclude secondary causes. -Low bone mass at the hip or spine and a 10-year fracture probability by FRAX of greater than or equal to 3% for hip fracture or greater than or equal to 20% for major osteoporotic fracture based on the [place] adapted WHO algorithm. 4. Other Recommendations: All treatment decisions require clinical judgment and consideration of individual patient factors, including patient preferences, comorbidities, previous drug use, risk factors not captured in the FRAX model (e.g. frailty, falls, vitamin D deficiency, increased bone turnover, interval significant decline in bone density) and possible under or overestimation of fracture risk by FRAX. Additional medical evaluation for secondary cause of low bone mineral density may be appropriate. FUTURE SCAN RECOMMENDATION: People with diagnosed cases of osteoporosis or at high risk for fracture should have regular bone mineral density tests. For patients eligible for Medicare, routine testing is allowed once every 2 years. The testing frequency can be increased to one year for patients who have rapidly progressing disease, those who are receiving or discontinuing medical therapy to restore bone mass, or have additional risk factors. Electronically signed by: Deric Leong MD 04/25/2024 03:10 PM [facility]
== END 2024-04-19 14:08 | disposition home or self-care (01) ==
LOC: HO.MAMMO 14:07
PROVIDERS: PCP Internal Medicine; Visit Provider Internal Medicine
DX: Z12.31 Encounter for screening mammogram for malignant neoplasm of breast (principal); Z13.820 Encounter for screening for osteoporosis; Z78.0 Asymptomatic menopausal state; M85.89 Other specified disorders of bone density and structure, multiple sites
CPT/HCPCS: 77063; 77067; 77080

== ENCOUNTER → 2024-04-19 15:00 | Outpatient (BNV) | payer OTHER, SELFPAY | PROVIDERS: PCP Internal Medicine; Visit Provider Internal Medicine | DX: Z12.31 Encounter for screening mammogram for malignant neoplasm of breast (principal) | CPT/HCPCS: 77063; 77067 ==

== ENCOUNTER 2024-05-28 11:39 | Outpatient (REF) | payer OTHER, SELFPAY ==
--- NOTE | ~2024-05-28 | MM_ITS ---
EXAMINATION: MM DIAGNOSTIC DIGITAL BREAST TOMOSYNTHESIS, BILATERAL Bilateral Limited ultrasound. CLINICAL INFORMATION: Call back from screening for bilateral asymmetries. COMPARISON: Mammography: Comparison is made with relevant prior exams. TECHNIQUE: Digital breast mammography with tomosynthesis is performed in both the craniocaudal and mediolateral oblique views along with computer-aided detection (CAD). Bilateral Limited breast ultrasound. FINDINGS: There are scattered areas of fibroglandular density (ACR BI-RADS breast composition Category b). Left: Circumscribed oval mass in the retroareolar region waxes and wanes in comparison to prior imaging dating back to 2011. A suspicious calcifications or other abnormal findings. Targeted color Doppler ultrasound scanning in the left breast at 12:00 1 cm from nipple demonstrates a hypoechoic oval circumscribed solid mass versus complicated cyst measuring 6 x 5 x 4 mm. There is no internal vascular flow. This likely correlate for the circumscribed oval mass seen on mammography. Right: The previously seen asymmetry in the lateral right breast anterior depth on CC view does not persist on additional imaging projections and likely represented overlapping breast tissue. No suspicious calcifications or other abnormal findings. Targeted color Doppler ultrasound scanning from 7-11 o'clock demonstrates normal fibroglandular breast tissue. Results are provided to the patient at time of visit by the technologist. MM/MM tomosynthesis added view BI IMPRESSION: Left: Solid mass versus complicated cyst at 12:00 on ultrasound. Recommend 6 month follow-up ultrasound for further evaluation of stability. Right: Negative. ASSESSMENT: BI-RADS BI-RADS 3 - Probably benign finding(s) - 6 month follow-up suggested RECOMMENDATION: 6 month followup left breast ultrasound Right: Return to screening mammogram in one year. This patient's information was entered into a reminder system with a target due date for their next mammogram. Electronically signed by: Kate Demarco DO 05/28/2024 12:44 PM EST
== END 2024-05-28 11:40 | disposition home or self-care (01) ==
LOC: HO.MAMMO 11:39
PROVIDERS: PCP Internal Medicine; Visit Provider Internal Medicine
DX: N64.89 Other specified disorders of breast (principal)
CPT/HCPCS: 76642; 77062; 77066

== ENCOUNTER → 2024-05-28 12:15 | Outpatient (BNV) | payer OTHER, SELFPAY | PROVIDERS: PCP Internal Medicine; Visit Provider Internal Medicine | DX: N63.25 Unspecified lump in the left breast, overlapping quadrants (principal); R92.323 Mammographic fibroglandular density, bilateral breasts | CPT/HCPCS: 76642; 77066; G0279 ==

== ENCOUNTER 2024-09-18 08:53 | Outpatient (REF) | payer OTHER, SELFPAY ==
--- OUTSIDE RECORDS SUMMARY | 2024-09-18 09:27 | XMS_ITS | Patient Health Record ---
Author Organization 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 Name Role Phone Shira AMARO, Viridiana Primary Care Provider Ole Busch Unavailable [phone] Allergies Allergen (clinical drug ingredient) Drug/Non Drug Allergy documented on EMR Reaction Allergy Type Onset Date Status Penicillin Unknown Drug Allergy Active Codeine Phosphate Unknown Drug Allergy Active Reason For Referral No Information Medications Medication SIG (Take, Route, Fr equency, Duration) Notes Start Date End Date Status Multi Vitamin/Minerals Active Zocor 40 MG 1 tablet in the even ing Orally Once a day Active Immunizations Vaccine Route Administration Date Status Comme nts Influenza Unknown 02/19/2020 Administered Social History Tobacco Use: Social History Observation Description Date Details (start date - stop date) Former Smoker NA - NA Tobacco Use/Smoking Question Answer Notes Patient is a former smoker How long has it been since you last smoked? > 10 years Alcohol Screen Question Answer Notes Did you have a drink containing alcohol in the p ast year? No Points 0 Interpretation Negative Section Notes: Nonsmoker > 10 years; no alc ohol Nonsmoker > 10 years; no alc ohol Problems Problem Type SNOMED Code ICD Code Onset Dates Problem Status W/U Status Risk Notes Problem [id number] Encounter for screening for malignant neoplasm of colon (Z12.11) Active confirmed Problem History of adenomatous polyp of colon (489225230) History of adenomatous polyp of colon (Z86.010) Active confirmed Problem Change in bowel habit (59826963) Change in bowel habits (R19.4) Active confirmed Problem [id number] Preprocedural examination (Z01.818) Active confirmed Plan Of Treatment Future Test Test Name Order Date COLONOSCOPY 07/20/2017 COLONOSCOPY 05/27/2020 Insurance Providers Payer Name Payer Address Payer Phone Subscriber Number Group Number Insured Name Patient Relationship to Insured Coverage Start Date Coverage End Date [facility] [address] [place] [phone] [id number] MELY STEELE Self - patient is the insured Medical (General) History Medical History History ICD Code Colonoscopy 08-23-2005--no polyps--interna l hemorrhoids, diverticulosis Hyperlipidemia Denies MN,DM,CVA,Lung disease,renal dise ase 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 The exam was difficult and the cecum was only partially visulaized Surgical History Surgery Date(Month/Year) Bladder suspension Hysterectomy
[2024-09-18 11:17] LABS: Alanine Aminotransferase 19 U/L (0-31); Anion Gap 12 (12-20); Aspartate Amino Transferase 28 U/L (5-31); Blood Urea Nitrogen 17 mg/dL (9-16); Calcium 9.3 mg/dL (8.4-10.2); Carbon Dioxide 28 mmol/L (22-29); Chloride 106 mmol/L (96-108); Cholesterol 222 mg/dL (<200); Estimated Glomerular Filt Rate > 60; Glucose Fasting 126 mg/dL (60-99); HDL Cholesterol 45 mg/dL (>40); LDL Cholesterol Calculated 125 mg/dL (<100); Potassium 4.3 mmol/L (3.3-5.1); Sodium 142 mmol/L (135-145); Triglycerides 260 mg/dL (<150)
[2024-09-18 11:19] LABS: Estimated Average Glucose 154 mg/dL; Hemoglobin A1C 194.5012 umol/L; Total Hemoglobin (HGBA1C) 3695.3984 umol/L
[2024-09-18 11:33] LABS: TSH reflex Free T4 1.05 uIU/mL (0.32-4.0); Vitamin D 25-OH Total 42.3 ng/mL (>30)
== END 2024-09-18 08:54 | disposition home or self-care (01) ==
LOC: HO.HMGCLDS 08:53
PROVIDERS: PCP Internal Medicine; Visit Provider Internal Medicine
DX: E11.9 Type 2 diabetes mellitus without complications (principal); E78.2 Mixed hyperlipidemia; M85.89 Other specified disorders of bone density and structure, multiple sites; Z78.0 Asymptomatic menopausal state
CPT/HCPCS: 36415; 80048; 80061; 82306; 83036; 84443; 84450; 84460

== ENCOUNTER 2024-10-11 16:02 | Outpatient (AMB) | payer OTHER, SELFPAY ==
[2024-10-11 16:12] VITALS: BP 118/80; PULSE 79; RESP 15; TEMP 36.6; O2SAT 96; BMI 28.3
--- NOTE | 2024-10-11 16:12 | MHC.PC.OV ---
Vital Signs 10/11/24 16:12 Height 5 ft Weight 145 lb BMI 28.3 BP 118/80 Blood Pressure Location Rt brachial Position Sitting Respiration 15 Pulse 79 Pulse Source Pulse Oximeter Temp 97.9 F Temp Source Oral Pulse Oximetry (%) 96 Oxygen Delivery Method Room Air Intake Visit Reasons: f/u labs Allergies codeine Allergy (Severe, Verified 10/15/24 04:41) Hives Penicillins Allergy (Severe, Verified 10/15/24 04:41) Anaphylaxis Medication List - Last Reconciled 10/15/24 by Viridiana Silva MD biotin 1,000 mcg PO DAILY cholecalciferol (vitamin D3) (Vitamin D3) 25 mcg PO DAILY empagliflozin (Jardiance) 10 mg PO QAM multivitamin 1 tab PO DAILY omega 5-hqz-gkh-fish oil 1,200 (144-216) mg (Fish Oil) 2000mg Paxlovid 300 mg (150 mg x 2)-100 mg (nirmatrelvir-ritonavir) take TWO 150 mg tablets of nirmatrelvir with ONE 100 mg tablet of ritonavir twice daily for 5 days PO NS simvastatin 40 mg PO BEDTIME Tobacco use date assessed: 10/11/24 Fall risk assessment: 2 + Falls in past year Last assessed Fall Risk: 10/11/24 Dental Screening Dental Screen Date: 10/11/24 Did you have a dental visit in the last 12 months?: Yes Did you have a dental problem in the last 6 months where you did not have access to dental care?: No Was dental information given to patient?: Patient has dentist HPI f/u labs HPI Details 74-year-old lady with diabetes mellitus, currently on empagliflozin 10 mg daily in the morning and on simvastatin 40 mg at bedtime, for treatment of her dyslipidemia, here today for follow-up. She has been compliant with taking her medications and has been trying to follow recommended diet but admits to not getting much exercise this past winter. [facility] Medical History Diabetes mellitus, without long-term current use of insulin Hx of renal calculi Lumbago Family history of breast cancer in sister Temporomandibular joint pain Mixed dyslipidemia Osteopenia of multiple sites Menopause Hx of heartburn Surgical History History of bladder suspension procedure Hx of hysterectomy Hx of colonoscopy Family History Father Emphysema, unspecified Mother Mental health disorder Sister Breast cancer Brother No problems noted. Son No problems noted. Daughter No problems noted. Sister No problems noted. Sister No problems noted. Maternal Grandfather No problems noted. Maternal Grandmother No problems noted. Paternal Grandfather No problems noted. Paternal Grandmother No problems noted. Social History Housing: Apartment Alcohol intake: never Patient Tobacco Use Status: Former Tobacco user Cigarette Packs Per Day: 1 Years Smoked: 30 yrs e-Cigarette/Vaping Use: Never Used service: No Current occupational status: retired Cognitive needs: No Hearing needs: No Vision needs: Yes Questionnaire PHQ-9 Over the last 2 weeks, how often have you been bothered by any of the following problems? 1. Little interest or pleasure in doing things: not at all 2. Feeling down, depressed, or hopeless: not at all 3. Trouble falling or staying asleep, or sleeping too much: more than half the days 4. Feeling tired or having little energy: nearly every day 5. Poor appetite or overeating: not at all 6. Feeling bad about yourself - or that you are a failure or have let yourself or your family down: not at all 7. Trouble concentrating on things, such as reading the newspaper or watching television: not at all 8. Moving or speaking so slowly that other people could have noticed. Or the opposite - being so fidgety or restless that you have been moving around a lot more than usual: not at all 9. Thoughts that you would be better off or of hurting yourself in some way: not at all Total score: 5 Depression Screening Interpretation: Negative Depression Screening Done: Yes 50866 - PHQ-9 Billing: Yes Source: Developed by Drs. Ole Abrams, Karissa Green, Jl Nicholson and colleagues, with an educational kelli from [employer]. Thrive Questionnaire Date Thrive assessed: 10/11/24 I am a: Patient What is your living situation today?: I have a steady place to live Within the past 12 months, did the food you bought not last and you didn't have the money to get more?: Never true Within the past 12 months, did you worry whether your food would run out before you got money to buy more?: Never true Do you have trouble paying for medicines?: No Do you have trouble getting transportation to medical appointments?: No Do you have trouble paying your heating and electricity bill?: No Do you have trouble taking care of your child, family member or friend?: No Do you have trouble with day-to-day activities such as bathing, preparing meals, shopping, managing finances, etc.?: No Are you currently unemployed and looking for a job?: No Are you interested in more education?: No Please select the resources that you would like help with: None Currently or been in a relationship where the following occur: No concerns reported THRIVE Score: 0 AUDIT C Alcohol Use Questionnaire (AUDIT-C) 1. How often do you have a drink containing alcohol?: Never Total Score: 0 JASON-7 AMB Questionnaire JASON-7 Date JASON - 7 assessed: 10/11/24 Feeling nervous, anxious, or on edge: 0 = Not at all Not being able to stop or control worryin = Not at all Worrying too much about different things: 0 = Not at all Trouble relaxin = Not at all Being so restless that it is hard to sit still: 0 = Not at all Becoming easily annoyed or irritable: 0 = Not at all Feeling afraid as if something awful might happen: 0 = Not at all Total JASON-7 score (0-4 normal; 5-9 mild; 10-14 moderate; 15-21 severe): 0 Source: Developed by Drs. Ole Abrams, Karissa Green, Jl Nicholson and colleagues, with an educational kelli from [employer]. 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[place], had cataract surgery and laser surgery Reports no additional complaints ENT Reports no additional complaints Card Denies chest pain, Denies irregular heart rhythm, Denies lightheadedness and Denies dyspnea Resp Denies cough and Denies dyspnea GI Reports no additional complaints Reports no additional complaints Musc Reports as per HPI Skin/Breast Denies rash and Denies unusual bruising Neuro Reports no additional complaints Psych Reports no additional complaints Endo Reports no additional complaints Aramis/Lymph Reports no additional complaints Aller/Immun Reports no additional complaints Physical exam (Primary Care) Vital Signs: Last Vital Signs Temp 97.9 F 10/11/24 16:12 Pulse 79 10/11/24 16:12 Resp 15 10/11/24 16:12 BP 118/80 10/11/24 16:12 Pulse Ox 96 10/11/24 16:12 Oxygen Delivery Method Room Air 10/11/24 16:12 BMI result Body Mass Index 28.3 Tobacco/Smoking Status: Tobacco use Status Tobacco use date assessed 10/11/24 10/11/24 16:16 Patient Tobacco Use Status Former Tobacco user 10/11/24 16:16 e-Cigarette/Vaping Use Never Used 10/11/24 16:16 PHQ-9: PHQ-9 Score PHQ-9: Total score 5 10/11/24 16:47 Depression Screening Interpretation: Negative Thrive Assessment: Date of Thrive Assessment Date Thrive assessed 10/11/24 10/11/24 16:16 Currently or been in a relationship where the following occur: No concerns reported Const Other: Alert oriented x3, no acute distress noted ambulatory normal gait Orientation/consciousness: patient oriented x3 HENMT Mouth: Normal oral and palatal mucosa present and moist mucous membranes Eyes General: appearance normal, both eyes and all related structures Neck Other: Supple , no lymphadenopathy thyroid gland nonpalpable Resp Auscultation: clear to auscultation bilaterally Cardio Other: S1-S2 present regular rate and rhythm GI Palpation (GI): Soft to palpation, nontender, no guarding and no masses General: Yes no CVA tenderness Back/Spine/Pelvis Back: no CVA tenderness Skin General skin exam: no rashes or lesions noted Neuro General: patient oriented x3, tone normal, moves all extremities and no focal motor deficits Extrem General: Yes full ROM, Yes no joint enlargement, Yes no clubbing, cyanosis or edema and Yes normal gait Psych Appearance: grossly normal and well kempt Mental Status: mental status grossly normal Speech and movement: Normal speech and movement present Affect: normal affect Results Reviewed Results Reviewed: Laboratory Tests 10/27/23 09/18/24 06:17 09:01 Estimat Average Glucose 163 154 Hemoglobin A1c % 7.3 H 7.0 H pavan: Arianna Shen Age/Sex: 74/F : 1950 Unit#: [id number] Attend Dr: Viridiana Silva MD Re09/18/24 Status: DEP [facility]F [facility] Disch: SPEC : [id number] SHAWN: 09/18/24 STATUS: COMP REQ : [id number] RECD: 09/18/[address]: Viridiana Silva MD COMP: 09/18/24 ENTERED: 09/18/[address]: ORDERED: Met Prof Fast, AST, ALT, Lipid Panel, Vitamin D 25-OH, TSH Rflx Test Result Flag Reference Sodium 142 135-145 mmol/L Potassium 4.3 3.3-5.1 mmol/L CL 106 96-108 mmol/L CO2 28 22-29 mmol/L Gap 12 12-20 BUN 17 H 9-16 mg/dL Creat 0.77 0.5-1.4 mg/dL eGFR > 60 Chronic Kidney Disease: Estimated GFR < 60 mL/min/1.73m2 Severe Kidney Disease: Estimated GFR < 15 mL/min/1.73m2 FBS 126 H 60-99 mg/dL A fasting glucose of 126 mg/dl or greater on more than one occasion is considered diagnostic of diabetes. CA 9.3 8.4-10.2 mg/dL AST (GOT) 28 5-31 U/L ALT (GPT) 19 0-31 U/L Triglyceride 260 H <150 mg/dL Desirable Triglyceride: less than 150 mg/dL Borderline High Triglyceride 150-199 mg/dL High Triglyceride: 200-499 mg/dL Very High Triglyceride: greater than or equal to 5OO mg/dL Cholesterol 222 H <200 mg/dL Desirable Cholesterol: less than 200 mg/dL Borderline High Cholesterol: 200-239 mg/dL High Cholesterol: greater than 239 mg/dL LDL Calculated 125 H <100 mg/dL Desirable LDL: less than 100 mg/dL Near Optimal/Above Optimal LDL: 110-129 mg/dL Borderline High LDL: 130-159 mg/dL High LDL: 160-189 mg/dL Very High LDL: greater than or equal to 190 mg/dL HDL 45 >40 mg/dL Desirable HDL: greater than 40 mg/dL Note: This HDL assay may give artificially low results in patients with liver disease. Vitamin D 25-OH 42.3 >30 ng/mL Health Based Reference Values* < 20 ng/mL Deficient 20-30 ng/mL Insufficient > 30 ng/mL Sufficient *Fredy LUCIO. N Engl J Med. 2007;357:266-280 There is no well-established upper level of normal vitamin D levels. Some laboratories use 50 ng/mL as an upper limit of normal. However, toxicity is patient-dependent and may occur at any level. Careful correlation with the patient's presentation is necessary and, if there is concern for vitamin D toxicity, treatment should be considered irrespective of the serum level. Care must be taken in interpreting Vitamin D results from different laboratories and methodologies. Published data demonstrated that results from patients undergoing hemodialysis may show a negative bias when tested with various automated 25-OH vitamin D assays when compared to LC-MS/MS. When testing samples from patients whose predominant form of Vitamin D is Vitamin D2, such as patients receiving Vitamin D2 supplementation, results that are subtherapeutic should be confirmed with another method such as LC-MS/MS. TSH 1.05 0.32-4.0 uIU/mL Coding Level of Care Code Est Pt Level 4 (21912) Complex EM visit Add On G2211 Diagnoses Diabetes mellitus, without long-term current use of insulin E11.9 Mixed dyslipidemia E78.2 Menopause Z78.0 Osteopenia of multiple sites M85.89 Additional Codes PHQ-9 - 38961 - PHQ-9 Billing: Yes ([id number]) Assessment & Plan Assessment & Plan (1) Diabetes mellitus, without long-term current use of insulin: Code(s): E11.9 - Type 2 diabetes mellitus without complications Category: Medical Plan: Improvement in glucose control noted with hemoglobin A1c now down to 7%, continue with the empagliflozin 10 mg taken once a day in a.m., in addition to adherence to healthy eating habits and getting regular exercise, now that the weather is better (2) Mixed dyslipidemia: Code(s): E78.2 - Mixed hyperlipidemia Category: Medical Plan: Reviewed recent fasting lipid profile with patient with LDL cholesterol still not at goal of less than 100 mg/dL . Continue simvastatin 40 mg at bedtime in addition to [place] 3 fatty acid supplements , stressed importance of adherence to low-cholesterol diet and regular exercise, at least 30 minutes 3 to 4 times a week. Advised patient to make healthy food choices, eat more fruits, vegetables, whole grains, wild caught fish and low-fat dairy. Limit amount of meat and fried or fatty food products, as well as processed foods and fast foods. Follow-up scheduled with repeat fasting lipid panel in 3 months. (3) Menopause: Code(s): Z78.0 - Asymptomatic menopausal state Category: Medical Plan: Continue vitamin-D 3 supplement and taking multivitamin reinforced importance of doing regular weight-bearing exercise. (4) Osteopenia of multiple sites: Code(s): M85.89 - Other specified disorders of bone density and structure, multiple sites Category: Medical Plan: Continue vitamin-D 3 supplement and taking multivitamin reinforced importance of doing regular weight-bearing exercise. Orders: Orders Lipid Panel 12/22/24 E11.9 - Type 2 diabetes mellitus without complications, E78.2 - Mixed hyperlipidemia, M85.89 - Other specified disorders of bone density and structure, multiple sites, Z78.0 - Asymptomatic menopausal state Basic Metabolic Panel Fasting 12/22/24 E11.9 - Type 2 diabetes mellitus without complications, E78.2 - Mixed hyperlipidemia, M85.89 - Other specified disorders of bone density and structure, multiple sites, Z78.0 - Asymptomatic menopausal state Aspartate Amino Transferase 12/22/24 E11.9 - Type 2 diabetes mellitus without complications, E78.2 - Mixed hyperlipidemia, M85.89 - Other specified disorders of bone density and structure, multiple sites, Z78.0 - Asymptomatic menopausal state Creatine Kinase Total 12/22/24 E11.9 - Type 2 diabetes mellitus without complications, E78.2 - Mixed hyperlipidemia, M85.89 - Other specified disorders of bone density and structure, multiple sites, Z78.0 - Asymptomatic menopausal state Alanine Aminotransferase 12/22/24 E11.9 - Type 2 diabetes mellitus without complications, E78.2 - Mixed hyperlipidemia, M85.89 - Other specified disorders of bone density and structure, multiple sites, Z78.0 - Asymptomatic menopausal state
== END 2024-10-11 16:49 | disposition home or self-care (01) ==
LOC: HO.HMCC 16:03
PROVIDERS: PCP Internal Medicine; Visit Provider Internal Medicine
DX: E11.9 Type 2 diabetes mellitus without complications (principal); E78.2 Mixed hyperlipidemia; Z78.0 Asymptomatic menopausal state; M85.89 Other specified disorders of bone density and structure, multiple sites

== ENCOUNTER → 2024-10-11 16:02 | Outpatient (BNVA) | payer OTHER, SELFPAY | PROVIDERS: PCP Internal Medicine; Visit Provider Internal Medicine | DX: E11.9 Type 2 diabetes mellitus without complications (principal); E78.2 Mixed hyperlipidemia; M85.89 Other specified disorders of bone density and structure, multiple sites; Z78.0 Asymptomatic menopausal state | CPT/HCPCS: 96127; 99212 ==

== ENCOUNTER 2025-01-07 06:17 | Outpatient (REF) | payer OTHER, SELFPAY ==
--- NOTE | ~2025-01-07 | US_ITS ---
EXAMINATION: US DIAGNOSTIC ULTRASOUND BREAST, LEFT CLINICAL INFORMATION: 6 month follow-up for hypoechoic oval circumscribed solid mass at 12:00 1 cm from the nipple in the left breast.. COMPARISON: Comparison is made with relevant prior imaging. TECHNIQUE: Ultrasound of the breast is performed with real-time mendoza scale imaging and color Doppler. FINDINGS: Targeted color Doppler ultrasound again demonstrates a hypoechoic oval parallel circumscribed solid mass at 12:00 1 cm from the nipple not significantly changed from prior ultrasound today measuring 6 x 5 x 3 mm. Results are discussed with the patient at time of visit. US/US breast LT limited mamm only IMPRESSION: Hypoechoic oval circumscribed solid mass in the left breast at 12:00 1 cm from the nipple not significantly changed from prior. Probably benign. Recommend 6 month follow-up for further evaluation of stability. ASSESSMENT: BI-RADS 3: Probably Benign RECOMMENDATION: Diagnostic ultrasound in 6 months. This patient's information was entered into a reminder system with a target due date for their next mammogram. Electronically signed by: Kate Demarco DO 01/07/2025 11:57 AM EDT
[2025-01-07 10:38] LABS: Alanine Aminotransferase 19 U/L (0-31); Anion Gap 12 (12-20); Aspartate Amino Transferase 22 U/L (5-31); Blood Urea Nitrogen 15 mg/dL (9-16); Calcium 8.8 mg/dL (8.4-10.2); Carbon Dioxide 27 mmol/L (22-29); Chloride 109 mmol/L (96-108); Cholesterol 248 mg/dL (<200); Estimated Glomerular Filt Rate > 60; HDL Cholesterol 45 mg/dL (>40); Potassium 3.8 mmol/L (3.3-5.1); Sodium 144 mmol/L (135-145); Triglycerides 286 mg/dL (<150)
== END 2025-01-07 06:18 | disposition home or self-care (01) ==
LOC: HO.MAMMO 06:17
PROVIDERS: PCP Internal Medicine; Referring Provider Internal Medicine; Visit Provider Internal Medicine
DX: E11.9 Type 2 diabetes mellitus without complications (principal); E78.2 Mixed hyperlipidemia; Z78.0 Asymptomatic menopausal state; M85.89 Other specified disorders of bone density and structure, multiple sites; N63.42 Unspecified lump in left breast, subareolar
CPT/HCPCS: 36415; 76642; 80048; 80061; 82550; 84450; 84460

== ENCOUNTER → 2025-01-07 11:30 | Outpatient (BNV) | payer OTHER, SELFPAY | PROVIDERS: PCP Internal Medicine; Referring Provider Internal Medicine; Visit Provider Internal Medicine | DX: N63.21 Unspecified lump in the left breast, upper outer quadrant (principal) | CPT/HCPCS: 76642 ==

== ENCOUNTER 2025-01-10 15:55 | Outpatient (AMB) | payer MEDICARE, SELFPAY ==
--- NOTE | 2025-01-10 15:57 | MHC.PC.OV ---
Vital Signs 01/10/25 16:02 Height 5 ft Weight 143 lb BMI 27.9 BP 130/96 H Blood Pressure Location Lt brachial Position Sitting Respiration 16 Pulse 72 Pulse Source Pulse Oximeter Temp 98.1 F Temp Source Oral Pulse Oximetry (%) 96 Oxygen Delivery Method Room Air Intake Visit Reasons: Annual PE Intake Note: Pt is here for her annual PE Garment Sewer Hand Required: No Accompanied by: Self / Same As Patient Allergies codeine Allergy (Severe, Verified 01/10/25 16:18) Hives Penicillins Allergy (Severe, Verified 01/10/25 16:18) Anaphylaxis Medication List - Last Reconciled 01/10/25 by Viridiana Silva MD No Known Home Meds Tobacco use date assessed: 01/10/25 Fall risk assessment: No Falls in past year Last assessed Fall Risk: 01/10/25 Dental Screening Dental Screen Date: 01/10/25 Did you have a dental visit in the last 12 months?: Yes Did you have a dental problem in the last 6 months where you did not have access to dental care?: No Was dental information given to patient?: Patient has dentist HPI Annual PE HPI Details 74-year-old lady with history of mixed dyslipidemia, diabetes mellitus, osteopenia multiple sites, history of nephrolithiasis, here today for her physical exam. She previously was on metformin and then later switched to Jardiance and was on simvastatin on previous visits but patient has stopped taking all her medicines due to the side effects experience namely muscle pain form simvastatin and frequent urination from Jardiance She is up-to-date with her screening mammogram habit had it done in May 2024 done together with a left breast ultrasound which showed presence of hypoechoic mass. Repeat breast ultrasound was done this month, which showed a Hypoechoic oval circumscribed solid mass in the left breast at 12:00, 1 cm from the nipple not significantly changed from prior. Probably benign. Recommend 6 month follow-up. Last bone density scan was done in March 2024 which showed presence of osteopenia in left femoral neck and lumbar spine, unchanged from previous test. No history of fracture. [facility] Medical History Diabetes mellitus, without long-term current use of insulin Hx of renal calculi Lumbago Family history of breast cancer in sister Temporomandibular joint pain Mixed dyslipidemia Osteopenia of multiple sites Menopause Hx of heartburn Surgical History History of bladder suspension procedure Hx of hysterectomy Hx of colonoscopy Family History Father Emphysema, unspecified Mother Mental health disorder Sister Breast cancer Brother No problems noted. Son No problems noted. Daughter No problems noted. Sister No problems noted. Sister No problems noted. Maternal Grandfather No problems noted. Maternal Grandmother No problems noted. Paternal Grandfather No problems noted. Paternal Grandmother No problems noted. Social History Housing: Apartment Alcohol intake: never Patient Tobacco Use Status: Former Tobacco user Cigarette Packs Per Day: 1 Years Smoked: 30 yrs e-Cigarette/Vaping Use: Never Used service: No Current occupational status: retired Cognitive needs: No Hearing needs: No Vision needs: Yes Questionnaire PHQ-9 Over the last 2 weeks, how often have you been bothered by any of the following problems? Depression Screening Interpretation: Negative Depression Screening Done: Yes Source: Developed by Drs. Ole Abrams, Karissa Green, Jl Nicholson and colleagues, with an educational kelli from [employer]. Thrive Questionnaire Date Thrive assessed: 10/11/24 I am a: Patient What is your living situation today?: I have a steady place to live Within the past 12 months, did the food you bought not last and you didn't have the money to get more?: Never true Within the past 12 months, did you worry whether your food would run out before you got money to buy more?: Never true Do you have trouble paying for medicines?: No Do you have trouble getting transportation to medical appointments?: No Do you have trouble paying your heating and electricity bill?: No Do you have trouble taking care of your child, family member or friend?: No Do you have trouble with day-to-day activities such as bathing, preparing meals, shopping, managing finances, etc.?: No Are you currently unemployed and looking for a job?: No Are you interested in more education?: No Please select the resources that you would like help with: None Currently or been in a relationship where the following occur: No concerns reported THRIVE Score: 0 JASON-7 AMB Questionnaire JASON-7 Date JASON - 7 assessed: 01/10/25 Feeling nervous, anxious, or on edge: 0 = Not at all Not being able to stop or control worryin = Not at all Worrying too much about different things: 0 = Not at all Trouble relaxin = Not at all Being so restless that it is hard to sit still: 0 = Not at all Becoming easily annoyed or irritable: 0 = Not at all Feeling afraid as if something awful might happen: 0 = Not at all Total JASON-7 score (0-4 normal; 5-9 mild; 10-14 moderate; 15-21 severe): 0 Source: Developed by Drs. Ole Abrams, Karissa Green, Jl Nicholson and colleagues, with an educational kelli from [employer]. 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 Reports no additional complaints ENT Reports no additional complaints Card Denies chest pain, Denies irregular heart rhythm, Denies lightheadedness and Denies dyspnea Resp Denies cough and Denies dyspnea GI Reports no additional complaints Reports no additional complaints Musc Reports as per HPI Skin/Breast Denies rash and Denies unusual bruising Neuro Reports no additional complaints Psych Reports no additional complaints Endo Reports no additional complaints Aramis/Lymph Reports no additional complaints Aller/Immun Reports no additional complaints Physical exam (Primary Care) Vital Signs: Last Vital Signs Temp 98.1 F 01/10/25 16:02 Pulse 72 01/10/25 16:02 Resp 16 01/10/25 16:02 BP 130/96 H 01/10/25 16:02 Pulse Ox 96 01/10/25 16:02 Oxygen Delivery Method Room Air 01/10/25 16:02 BMI result Body Mass Index 27.9 Tobacco/Smoking Status: Tobacco use Status Tobacco use date assessed 01/10/25 01/10/25 15:59 Patient Tobacco Use Status Former Tobacco user 01/10/25 15:59 e-Cigarette/Vaping Use Never Used 01/10/25 15:59 Depression Screening Interpretation: Negative Thrive Assessment: Date of Thrive Assessment Date Thrive assessed 10/11/24 01/10/25 15:59 Currently or been in a relationship where the following occur: No concerns reported Const Other: Alert oriented x3, no acute distress noted ambulatory normal gait Orientation/consciousness: patient oriented x3 HENMT Mouth: Normal oral and palatal mucosa present and moist mucous membranes Eyes Other: Goes to an eye doctor in [place], up-to-date, no retinopathy seen per patient General: appearance normal, both eyes and all related structures Neck Other: Supple , no lymphadenopathy thyroid gland nonpalpable Chest Breast/axilla palpation: normal palpation of the breasts Resp Auscultation: clear to auscultation bilaterally Cardio Other: S1-S2 present regular rate and rhythm GI Palpation (GI): Soft to palpation, nontender, no guarding and no masses General: Yes no CVA tenderness Back/Spine/Pelvis Back: no CVA tenderness Skin General skin exam: no rashes or lesions noted Neuro General: patient oriented x3, tone normal, moves all extremities and no focal motor deficits Extrem General: Yes full ROM, Yes no joint enlargement, Yes no clubbing, cyanosis or edema and Yes normal gait Psych Appearance: grossly normal and well kempt Mental Status: mental status grossly normal Speech and movement: Normal speech and movement present Affect: normal affect Results AMB Hemoglobin A1c AMB Hemoglobin A1c 6.7 % Last Edit by Barbara Todd MA on 01/10/25 16:27 Results Reviewed Results Reviewed: Laboratory Last Values Hgb A1c (Clinic) 6.7 % (4.0-6.0) H 01/10/25 16:21 Name: Arianna Shen Age/Sex: 74/F : 1950 Unit#: [id number] Attend Dr: Gary Lane MD Re01/07/25 Status: DEP REF Location: [facility] Disch: SPEC : [id number] SHAWN: 01/07/25 STATUS: COMP REQ : [id number] RECD: 01/07/25-[address]: Viridiana Silva MD COMP: 01/07/25-1037 ENTERED: 01/07/[address] [facility] [address]: Gary Lane MD ORDERED: Met Prof Fast, AST, ALT, CK Total, Lipid Panel Test Result Flag Reference Sodium 144 135-145 mmol/L Potassium 3.8 3.3-5.1 mmol/L CL 109 H 96-108 mmol/L CO2 27 22-29 mmol/L Gap 12 12-20 BUN 15 9-16 mg/dL Creat 0.70 0.5-1.4 mg/dL eGFR > 60 Chronic Kidney Disease: Estimated GFR < 60 mL/min/1.73m2 Severe Kidney Disease: Estimated GFR < 15 mL/min/1.73m2 FBS 130 H 60-99 mg/dL A fasting glucose of 126 mg/dl or greater on more than one occasion is considered diagnostic of diabetes. CA 8.8 8.4-10.2 mg/dL AST (GOT) 22 5-31 U/L ALT (GPT) 19 0-31 U/L CK Total 66 26-140 U/L Triglyceride 286 H <150 mg/dL Desirable Triglyceride: less than 150 mg/dL Borderline High Triglyceride 150-199 mg/dL High Triglyceride: 200-499 mg/dL Very High Triglyceride: greater than or equal to 5OO mg/dL Cholesterol 248 H <200 mg/dL Desirable Cholesterol: less than 200 mg/dL Borderline High Cholesterol: 200-239 mg/dL High Cholesterol: greater than 239 mg/dL LDL Calculated 146 H <100 mg/dL Desirable LDL: less than 100 mg/dL Near Optimal/Above Optimal LDL: 110-129 mg/dL Borderline High LDL: 130-159 mg/dL High LDL: 160-189 mg/dL Very High LDL: greater than or equal to 190 mg/dL HDL 45 >40 mg/dL Desirable HDL: greater than 40 mg/dL Note: This HDL assay may give artificially low results in patients with liver disease. Coding Level of Care Code Est Pt Prev Care 40-64y(70306) Diagnoses Annual visit for general adult medical examination with abnormal findings Z00.01 Mixed dyslipidemia E78.2 Osteopenia of multiple sites M85.89 Diabetes mellitus, without long-term current use of insulin E11.9 Additional Codes JASON-7 Assessment Billing - JASON-7 Assessment Tool: JASON-7 Assessment 20034 ([id number]) Assessment & Plan Assessment & Plan (1) Annual visit for general adult medical examination with abnormal findings: Code(s): Z00.01 - Encounter for general adult medical examination with abnormal findings Plan: Up-to-date with her screening mammogram, bone density scan not due until next year.. Up-to-date with her colon cancer screening, sees Dr. Peres, due again for recheck in 2025. Up-to-date with all her vaccinations (2) Mixed dyslipidemia: Code(s): E78.2 - Mixed hyperlipidemia Category: Medical Plan: Stressed importance of getting likely levels under control. Will try her on rosuvastatin 5 mg per tablet to take 1 tablet only 3 times a week, added [place] 3 fatty acid supplements at least 1 capsule twice a day and advised to adhere to healthy eating habits and start exercising at least 150 minutes of moderate intensity exercise per week will repeat another fasting lipid panel in 3 months (3) Osteopenia of multiple sites: Code(s): M85.89 - Other specified disorders of bone density and structure, multiple sites Category: Medical Plan: Due for repeat bone density scan next year, stressed importance of doing regular weight-bearing exercise, stopped taking vitamin-D 3 supplements at least 2000 units daily and incorporating at least 1200 mg calcium in her diet (4) Diabetes mellitus, without long-term current use of insulin: Code(s): E11.9 - Type 2 diabetes mellitus without complications Category: Medical Plan: Diabetes mellitus control not at goal of less than 6.5%. Unable to tolerate metformin, will start her back on Jardiance mg 1 tablet daily in the morning an hour before breakfast., and adhere to healthy eating habits and again incorporate at least 150 minutes of moderate intensity exercise per week. Up-to-date with her diabetes retinopathy screening. Will see her back for follow-up in 3 months after fasting labs done Orders: Orders Aspartate Amino Transferase 3 Months E11.9 - Type 2 diabetes mellitus without complications, E78.2 - Mixed hyperlipidemia, M85.89 - Other specified disorders of bone density and structure, multiple sites Basic Metabolic Panel Fasting 3 Months E11.9 - Type 2 diabetes mellitus without complications, E78.2 - Mixed hyperlipidemia, M85.89 - Other specified disorders of bone density and structure, multiple sites Vitamin D 25-OH Total 3 Months E11.9 - Type 2 diabetes mellitus without complications, E78.2 - Mixed hyperlipidemia, M85.89 - Other specified disorders of bone density and structure, multiple sites Microalbumin, Random (w Creat) 3 Months E11.9 - Type 2 diabetes mellitus without complications, E78.2 - Mixed hyperlipidemia, M85.89 - Other specified disorders of bone density and structure, multiple sites AMB Hemoglobin A1c 01/10/25 Z13.9 - Encounter for screening, unspecified Alanine Aminotransferase 3 Months E11.9 - Type 2 diabetes mellitus without complications, E78.2 - Mixed hyperlipidemia, M85.89 - Other specified disorders of bone density and structure, multiple sites Lipid Panel 3 Months E11.9 - Type 2 diabetes mellitus without complications, E78.2 - Mixed hyperlipidemia, M85.89 - Other specified disorders of bone density and structure, multiple sites Hemoglobin A1c 3 Months E11.9 - Type 2 diabetes mellitus without complications, E78.2 - Mixed hyperlipidemia, M85.89 - Other specified disorders of bone density and structure, multiple sites Medications: New rosuvastatin 5 mg PO 3XW 39 tabs 3RF 3 months omega-3 acid ethyl esters (Lovaza) 1 cap PO BID 60 caps 6RF E78.2 - Mixed hyperlipidemia Changed From empagliflozin Take 1 hour before breakfast with glass of water and before any medications 10 mg PO QAM 30 tabs 3RF To Jardiance (empagliflozin) Take 1 hour before breakfast with glass of water and before any medications 10 mg PO QAM 30 tabs 5RF NS
--- OUTSIDE RECORDS SUMMARY | 2025-01-10 15:58 | XMS_ITS | Patient Health Record ---
Author Organization [facility] Address [address] [place] [address] Care Team Providers Care Aircraft Cabin Cleaner Name Role Phone Shira AMARO, Viridiana Primary Care Provider Ole Busch Unavailable [phone] Allergies Allergen (clinical drug ingredient) Drug/Non Drug [...] Problem Status W/U Status Risk Notes Problem 077284704 Encounter for screening for malignant neoplasm of colon (Z12.11) Active confirmed Problem History of adenomatous polyp of colon (804745082) History of adenomatous polyp of colon (Z86.010) Active confirmed Problem Change in bowel habits (R19.4) Active confirmed Problem [id number] Preprocedural examination (Z01.818) Active confirmed Plan Of Treatment Future Test Test Name Order Date COLONOSCOPY 07/20/2017 COLONOSCOPY 05/27/2020 Insurance Providers Payer Name Payer Address Payer Phone Subscriber Number Group Number Insured Name Patient Relationship to Insured Coverage Start Date Coverage End Date [facility] [address] [phone] [id number] STEPHANJAMEEL MELY Self - patient is the insured Medical (General) History Medical History History ICD Code Colonoscopy 08-23-2005--no polyps--interna l hemorrhoids, diverticulosis Hyperlipidemia Denies NM,DM,CVA,Lung disease,renal dise ase 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 The exam was difficult and the cecum was only partially visulaized Surgical History Surgery Date(Month/Year) Bladder suspension Hysterectomy
[2025-01-10 16:02] VITALS: BP 130/96; PULSE 72; RESP 16; TEMP 36.7; O2SAT 96; BMI 27.9
== END 2025-01-10 16:50 | disposition home or self-care (01) ==
PROVIDERS: PCP Internal Medicine; Visit Provider Internal Medicine
DX: Z13.9 Encounter for screening, unspecified (principal)

== ENCOUNTER → 2025-01-10 15:55 | Outpatient (BNVA) | payer OTHER, SELFPAY | PROVIDERS: PCP Internal Medicine; Visit Provider Internal Medicine | DX: Z00.01 Encounter for general adult medical examination with abnormal findings (principal); E78.2 Mixed hyperlipidemia; M85.89 Other specified disorders of bone density and structure, multiple sites; E11.9 Type 2 diabetes mellitus without complications; Z13.39 Encounter for screening examination for other mental health and behavioral disorders | CPT/HCPCS: 83036; 96127; 99397 ==

== ENCOUNTER 2025-04-19 06:09 | Outpatient (REF) | payer MEDICARE, SELFPAY ==
--- OUTSIDE RECORDS SUMMARY | 2025-04-19 06:11 | XMS_ITS | Patient Health Record ---
Author Organization [facility] Address [address] [place] [address] Care Team Providers Care Community Engagement Coordinator Name Role Phone Shira AMARO, Viridiana Primary Care Provider Ole Busch Unavailable [phone] Allergies Allergen (clinical drug ingredient) Drug/Non Drug [...] Problem Status W/U Status Risk Notes Problem Screening for malignant neoplasm of colon (709800247) Encounter for screening for malignant neoplasm of colon (Z12.11) Active confirmed Problem History of adenomatous polyp of colon (186115930) History of adenomatous polyp of colon (Z86.010) Active confirmed Problem Change in bowel habit (27880156) Change in bowel habits (R19.4) Active confirmed Problem Preprocedural examination (671064502588010) Preprocedural examination (Z01.818) Active confirmed Plan Of Treatment Future Test Test Name Order Date COLONOSCOPY 07/20/2017 COLONOSCOPY 05/27/2020 Insurance Providers Payer Name Payer Address Payer Phone Subscriber Number Group Number Insured Name Patient Relationship to Insured Coverage Start Date Coverage End Date [facility] [address] [place] [phone] [id number] MELY STEELE Self - patient is the insured Medical (General) History Medical History History ICD Code Colonoscopy 08-23-2005--no polyps--interna l hemorrhoids, diverticulosis Hyperlipidemia Denies [place],DM,CVA,Lung disease,renal dise ase 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 The exam was difficult and the cecum was only partially visulaized Surgical History Surgery Date(Month/Year) Bladder suspension Hysterectomy
[2025-04-19 11:08] LABS: Alanine Aminotransferase 18 U/L (0-31); Anion Gap 11 (12-20); Aspartate Amino Transferase 25 U/L (5-31); Blood Urea Nitrogen 15 mg/dL (9-16); Calcium 9.0 mg/dL (8.4-10.2); Carbon Dioxide 27 mmol/L (22-29); Chloride 108 mmol/L (96-108); Cholesterol 215 mg/dL (<200); Estimated Glomerular Filt Rate > 60; HDL Cholesterol 43 mg/dL (>40); Potassium 4.3 mmol/L (3.3-5.1); Sodium 142 mmol/L (135-145); Triglycerides 195 mg/dL (<150)
[2025-04-19 11:22] LABS: Hemoglobin A1C 149.0327 umol/L
[2025-04-19 11:37] LABS: Microalbum/Creatinine Ratio Ur 19.9 ug/mg cr (<30)
== END 2025-04-19 06:10 | disposition home or self-care (01) ==
LOC: HO.HMGCLDS 06:09
PROVIDERS: PCP Internal Medicine; Visit Provider Internal Medicine
DX: E78.2 Mixed hyperlipidemia (principal); E11.9 Type 2 diabetes mellitus without complications; M85.89 Other specified disorders of bone density and structure, multiple sites
CPT/HCPCS: 36415; 80048; 80061; 82043; 82306; 82570; 83036; 84450; 84460